=== PATIENT | male | born 1965 | race Caucasian/White ===

== ENCOUNTER 2025-03-19 00:51 | Observation (INO) | payer OTHER ==
[2025-03-19] MEDS ORDERED: Zofran 4 MG/2 ML VIAL ONE ×2 (01:38→10:26)
[2025-03-19] MEDS ORDERED: MORPHINE SULFATE 4 MG INJ ONE ×2 (01:39→03:30)
[2025-03-19 01:40] LABS: BASOPHIL % 0.5 % (0.2-1.2); Basophil (Absolute #) 0.05 x10^3/uL (0.01-0.08); Eosinophil (Absolute #) 0.15 x10^3/uL (0.04-0.54); Hematocrit 42.3 % (40.1-51.0); Hemoglobin 14.8 g/dL (13.7-17.5); IMMATURE GRAN # 0.04 x10^3u/L (0.001-0.031); IMMATURE GRAN % 0.4 % (0.001-0.429); Lymphocyte (Absolute #) 1.93 x10^3/uL (1.32-3.57); Mean Corpuscular Hemoglobin 29.1 pg (25.7-32.2); Mean Corpuscular Hgb Concent. 35.0 g/dL (32.3-36.5); Monocyte (Absolute #) 0.77 x10^3/uL (0.30-0.82); NUCLEATED RBC # 0.00 x10^3u/L (0.00-0.012); NUCLEATED RBC % 0.0 % (0.00-0.2); Platelet Count 169 x10^3/uL (163-337); Red Blood Count 5.08 x10^6/uL (4.63-6.08); White Blood Count 9.6 x10^3/uL (4.23-9.07)
[2025-03-19] MEDS: Zofran 4 MG/2 ML VIAL IV ONE (01:40)
[2025-03-19] MEDS: MORPHINE SULFATE 4 MG INJ IV ONE ×3 (01:42→06:46)
[2025-03-19 01:49] LABS: Glucose, Urine >=1000 mg/dL (Negative); Protein,Urine Dip 100 (Negative); RBC 0-2 /HPF (0-5); WBC 0-2 /HPF (0-5)
--- NOTE | 2025-03-19 01:51 | ERPHSYRPT ---
- History of Present Illness Time Seen by Provider: 03/19/25 01:45 Historian: patient Exam Limitations: no limitations Patient Subjective Stated Complaint: c/o groin pain Triage Nursing Assessment: patient brought to ED by father with c/o testicular and groin pain. patient brought into ED by wheelchair, rates pain 03/13 at this time, states that the pain started 3 days ago, has a doctors appt. in the morning but couldn't handl the pain anymore. Patient states the pain is mainly in his testicles and lower back, hernia present, hypertensive, skin w/n/d, gait steady, patient has a history of prostate issues. Physician History: 59-year-old male history of enlarged prostate, hypertension, type 2 diabetes hernia presents to our ED for evaluation of lower abdominal pain and testicular pain. Patient states the pain started 3 days ago and has been constant but has worsened over the past several hours. Pain tends to radiate to the low back. No trauma no fever. Patient was previously on lisinopril for blood pressure control. Patient states he has not taken any blood pressure medication "in a while". Patient states he currently has a appointment scheduled for a primary care physician. He admits that he has poor routine care follow-up. Patient's father is at the bedside. They voiced no other complaints or concerns at this time. Portions of this note were created with voice recognition technology. There may be grammatical, spelling, punctuation or sound alike errors Timing/Duration: today Activities at Onset: none Quality: aching Abdominal Pain Onset Location: other (Lower abdominal pain) Pain Radiation: back Severity of Pain-Max: moderate Severity of Pain-Current: mild Modifying Factors: Improves With: nothing Associated Symptoms: denies symptoms Previous symptoms: no prior history Allergies/Adverse Reactions: clarithromycin [From Biaxin] Allergy (Intermediate, Verified 03/19/25 00:59) Home Medications: No Reportable Medications [No Reported Medications] 03/19/25 [History] Hx Tetanus, Diphtheria Vaccination/Date Given: No Hx Influenza Vaccination/Date Given: No Hx Pneumococcal Vaccination/Date Given: No Travel Risk - International Travel Have you traveled outside of the country in past 3 weeks: No - Emerging Infectious Disease Are you exhibiting symptoms associated with any current EIDs: No - Review of Systems All Other Systems: Reviewed and Negative - Past Medical History Pertinent Past Medical History: Yes Cardiac History: Hypertension Respiratory History: No Pertinent History Endocrine Medical History: Diabetes Type II Male Reproductive Disorders: Prostate Problems Other Medical History: left forearm repair, hernia - Past Surgical History Past Surgical History: Yes Neuro Surgical History: No Pertinent History Gastrointestinal: Appendectomy Musculoskeletal: Orthopedic Surgery - Social History Smoking Status: Never smoker Exposure to second hand smoke: Yes Drug Use: none - Social Determinants of Health Will the patient participate in the screening: Yes Do you worry about a steady place to live?: No Do you have any problems with any of the following?: No known problems In the past 12 months,have you had to go without utilities?: No Transportation Issues: No Has anyone in your support network made you feel unsafe?: No Have you or anyone in your house had to go w/o enough food: No - Nursing Vital Signs Nursing Vital Signs: Initial Vital Signs Temperature 98.1 F 03/19/25 01:00 Pulse Rate 93 H 03/19/25 01:00 Respiratory Rate 19 03/19/25 01:00 O2 Sat by Pulse Oximetry 98 03/19/25 01:00 Pain Scale Pain Intensity 8 - Physical Exam General Appearance: no apparent distress, alert Eye Exam: PERRL/EOMI, eyes nml inspection Ears, Nose, Throat Exam: normal ENT inspection, pharynx normal, moist mucous membranes Neck Exam: normal inspection, full range of motion Respiratory Exam: normal breath sounds, lungs clear, No respiratory distress Cardiovascular Exam: regular rate/rhythm, normal heart sounds Gastrointestinal/Abdomen Exam: soft, other (Right inguinal hernia), No tenderness, No mass Male Genitalia Exam: normal genitalia, No testicular tenderness Back Exam: normal inspection, normal range of motion, No CVA tenderness, No vertebral tenderness Extremity Exam: normal inspection, normal range of motion, pelvis stable Neurologic Exam: alert, oriented x 3, cooperative, normal mood/affect, nml cerebellar function, sensation nml, No motor deficits Skin Exam: normal color, warm, dry SpO2 Interpretation: normal SpO2: 95 O2 Delivery: Room Air - Course Nursing assessment & vital signs reviewed: Yes - CT Exams Abdomen CT Interpretation: Tele-radiologist Report (Cholelithiasis, distended bladder, right inguinal hernia, sigmoid diverticulosis) - Radiology Ultrasound Exam Scrotal Ultrasound: tele radiology report (Collections Director bilateral epididymal orchitis, bilateral hydrocele with debris, left epididymal cyst with varicocele) Ordered Tests: Active Orders 24 hr Category Date Time Status IV Insertion STAT Care 03/19/25 01:21 Active NPO Diet 03/19/25 04:57 Active CTA ABDOMEN W AND/OR WO CONTRA [CT] Stat Exams 03/19/25 03:26 Completed TESTICLE [US] Stat Exams 03/19/25 01:24 Taken CBC W DIFF Stat Lab 03/19/25 01:37 Completed CMP Stat Lab 03/19/25 01:37 Completed TROPONIN Q4H Lab 03/19/25 01:37 Completed TROPONIN Q4H Lab 03/19/25 05:30 Ordered TROPONIN Q4H Lab 03/19/25 09:30 Ordered UA W/RFX UR CULTURE Stat Lab 03/19/25 01:27 Completed Medication Summary Generic Name Dose Route Start Last Admin Trade Name Freq PRN Reason Stop Dose Admin Sodium Chloride 1,000 mls @ 100 mls/hr 03/19/25 01:30 03/19/25 01:41 Sodium Chloride 0.9% 1000 Ml IV 04/18/25 01:29 100 mls/hr .Q10H JAIRO Administration Ceftriaxone Sodium 1 gm in 100 mls @ 200 mls/hr 03/19/25 05:03 Rocephin 1 Gm / 100 Ml Nacl IV 03/19/25 05:32 STAT ONE Metronidazole 500 mg in 100 mls @ 200 mls/hr 03/19/25 05:04 Flagyl 500 Mg Ivpb IV 03/19/25 05:33 STAT STA Discontinued Medications Generic Name Dose Route Start Last Admin Trade Name Freq PRN Reason Stop Dose Admin Morphine Sulfate 4 mg 03/19/25 01:21 03/19/25 01:42 Morphine Sulfate 4 Mg/Ml Injection IV 03/19/25 01:22 4 mg STAT ONE Administration Morphine Sulfate Confirm 03/19/25 01:39 Morphine Sulfate 4 Mg/Ml Injection Administered 03/19/25 01:40 Dose 4 mg .ROUTE .STK-MED ONE Morphine Sulfate 4 mg 03/19/25 03:27 03/19/25 03:34 Morphine Sulfate 4 Mg/Ml Injection IV 03/19/25 03:28 4 mg STAT ONE Administration Morphine Sulfate Confirm 03/19/25 03:30 Morphine Sulfate 4 Mg/Ml Injection Administered 03/19/25 03:31 Dose 4 mg .ROUTE .STK-MED ONE Ondansetron HCl 4 mg 03/19/25 01:21 03/19/25 01:40 Ondansetron Hcl 4 Mg/2 Ml Vial IV 03/19/25 01:22 4 mg STAT ONE Administration Ondansetron HCl Confirm 03/19/25 01:38 Ondansetron Hcl 4 Mg/2 Ml Vial Administered 03/19/25 01:39 Dose 4 mg .ROUTE .K-MED ONE Lab/Rad Data: Laboratory Result Diagrams 03/19/25 01:37 03/19/25 01:37 Laboratory Results 03/19/25 03/19/25 03/19/25 Range/Units 01:38 01:37 01:37 WBC (4.23-9.07) x10^3/uL RBC (4.63-6.08) x10^6/uL Hgb (13.7-17.5) g/dL Hct (40.1-51.0) % MCV (79.0-92.2) fL MCH (25.7-32.2) pg MCHC (32.3-36.5) g/dL RDW (11.6-14.4) % Plt Count (163-337) x10^3/uL MPV (9.4-12.4) fL Gran % (34.0-67.9) % Immature Gran % (Auto) (0.001-0.429) % Nucleat RBC Rel Count (0.00-0.2) % Eos # (Auto) (0.04-0.54) x10^3/uL Immature Gran # (Auto) (0.001-0.031) x10^3u/L Absolute Lymphs (auto) (1.32-3.57) x10^3/uL Absolute Monos (auto) (0.30-0.82) x10^3/uL Absolute Nucleated RBC (0.00-0.012) x10^3u/L Lymphocytes % (21.8-53.1) % Monocytes % (5.3-12.2) % Eosinophils % (0.8-7.0) % Basophils % (0.2-1.2) % Absolute Granulocytes (1.78-5.38) x10^3/uL Basophils # (0.01-0.08) x10^3/uL Sodium 130 L (135-145) mmol/L Potassium 4.1 (3.5-5.1) mmol/L Chloride 101 (98-107) mmol/L Carbon Dioxide 20 L (22-30) mmol/L Anion Gap 13.4 (5-15) MEQ/L BUN 28 H (9-20) mg/dL Creatinine 0.92 (0.66-1.25) mg/dL Estimated GFR 95.8 ML/MIN Glucose 362 H (74-106) mg/dL Calcium 8.9 (8.4-10.2) mg/dL Total Bilirubin 0.50 (0.2-1.3) mg/dL AST 24 (17-59) U/L ALT 27 (0-50) U/L Alkaline Phosphatase 85 (38-126) U/L Troponin I 0.021 (0.000-0.033) ng/mL Serum Total Protein 6.9 (6.3-8.2) g/dL Albumin 4.0 (3.5-5.0) g/dL Urine Color (Yellow) Urine Appearance (Clear) Urine pH (4.6-8.0) Ur Specific [place] (1.005-1.030) Urine Protein (Negative) Urine Glucose (UA) (Negative) mg/dL Urine Ketones (Negative) Urine Blood (Negative) Urine Nitrite (Negative) Urine Bilirubin (Negative) Urine Urobilinogen (0.2) mg/dL Ur Leukocyte Esterase (Negative) U Hyaline Cast (Auto) (0-2) /LPF Urine Microscopic RBC (0-5) /HPF Urine Microscopic WBC (0-5) /HPF Ur Epithelial Cells (None Seen) /HPF Urine Bacteria (None Seen) /HPF Urine Culture Reflexed (NO) Chlamydia DNA Probe NOT DETECTED (NEGATIVE) N.gonorrhoeae DNA Probe NOT DETECTED (NEGATIVE) 03/19/25 03/19/25 Range/Units 01:37 01:27 WBC 9.6 H (4.23-9.07) x10^3/uL RBC 5.08 (4.63-6.08) x10^6/uL Hgb 14.8 (13.7-17.5) g/dL Hct 42.3 (40.1-51.0) % MCV 83.3 (79.0-92.2) fL MCH 29.1 (25.7-32.2) pg MCHC 35.0 (32.3-36.5) g/dL RDW 12.4 (11.6-14.4) % Plt Count 169 (163-337) x10^3/uL MPV 10.0 (9.4-12.4) fL Gran % 69.3 H (34.0-67.9) % Immature Gran % (Auto) 0.4 (0.001-0.429) % Nucleat RBC Rel Count 0.0 (0.00-0.2) % Eos # (Auto) 0.15 (0.04-0.54) x10^3/uL Immature Gran # (Auto) 0.04 H (0.001-0.031) x10^3u/L Absolute Lymphs (auto) 1.93 (1.32-3.57) x10^3/uL Absolute Monos (auto) 0.77 (0.30-0.82) x10^3/uL Absolute Nucleated RBC 0.00 (0.00-0.012) x10^3u/L Lymphocytes % 20.2 L (21.8-53.1) % Monocytes % 8.0 (5.3-12.2) % Eosinophils % 1.6 (0.8-7.0) % Basophils % 0.5 (0.2-1.2) % Absolute Granulocytes 6.63 H (1.78-5.38) x10^3/uL Basophils # 0.05 (0.01-0.08) x10^3/uL Sodium (135-145) mmol/L Potassium (3.5-5.1) mmol/L Chloride (98-107) mmol/L Carbon Dioxide (22-30) mmol/L Anion Gap (5-15) MEQ/L BUN (9-20) mg/dL Creatinine (0.66-1.25) mg/dL Estimated GFR ML/MIN Glucose (74-106) mg/dL Calcium (8.4-10.2) mg/dL Total Bilirubin (0.2-1.3) mg/dL AST (17-59) U/L ALT (0-50) U/L Alkaline Phosphatase (38-126) U/L Troponin I (0.000-0.033) ng/mL Serum Total Protein (6.3-8.2) g/dL Albumin (3.5-5.0) g/dL Urine Color Yellow (Yellow) Urine Appearance Clear (Clear) Urine pH 6.0 (4.6-8.0) Ur Specific [place] 1.025 (1.005-1.030) Urine Protein 100 A (Negative) Urine Glucose (UA) >=1000 A (Negative) mg/dL Urine Ketones Negative (Negative) Urine Blood Negative (Negative) Urine Nitrite Negative (Negative) Urine Bilirubin Negative (Negative) Urine Urobilinogen 1.0 A (0.2) mg/dL Ur Leukocyte Esterase Negative (Negative) U Hyaline Cast (Auto) NONE SEEN (0-2) /LPF Urine Microscopic RBC 0-2 (0-5) /HPF Urine Microscopic WBC 0-2 (0-5) /HPF Ur Epithelial Cells None Seen (None Seen) /HPF Urine Bacteria None Seen (None Seen) /HPF Urine Culture Reflexed NO (NO) Chlamydia DNA Probe (NEGATIVE) N.gonorrhoeae DNA Probe (NEGATIVE) - Progress Progress: improved Progress Note: Case discussed with Dr. Adam Sutton at 4:53 AM. Patient will be NPO. Patient will be admitted to hospitalist for further evaluation and treatment. 03/19/25 04:57 59-year-old male history of enlarged prostate, hypertension, type 2 diabetes hernia presents to our ED for evaluation of lower abdominal pain and testicular pain. Patient states the pain started 3 days ago and has been constant but has worsened over the past several hours. Exam reveals a right inguinal hernia that appears to be incarcerated. Ultrasound of bilateral testicles reveals epididymal orchitis bilaterally. Bilateral hydrocele with debris left epididymal cysts with varicocele. No torsion. CT scan confirms a right inguinal hernia containing bowel. Urinary bladder slightly distended. Sigmoid diverticulosis. Patient has leukocytosis of 9.6. Hyponatremia of 130. IV fluids administered. In light of the bilateral epididymoorchitis patient received a dose of Rocephin. Flagyl administered as well. Patient is NPO. Plan of care discussed with patient. He agrees to admission to [facility] for further evaluation and treatment. Rocephin and Flagyl administered to cover both epididymal orchitis and intra- abdominal pathology Portions of this note were created with voice recognition technology. There may be grammatical, spelling, punctuation or sound alike errors History obtained from patient. Differential diagnosis includes incarcerated right inguinal hernia, ureterolithiasis, appendicitis, trauma Complexity of problems addressed is moderate acute complicated. No critical care time. Complexity of data reviewed and analyzed is extensive. Test ordered test reviewed results analyzed and correlated clinically with history and physical exam. Risk of complication and or risk of morbidity/mortality of patient management is high. Patient requires hospitalization for further evaluation and treatment. Vital stable. Time spent admit patient is approximately 20 minutes. Plan of care established for shared decision making. No social determinants of health present to impede follow-up. Portions of this note were created with voice recognition technology. There may be grammatical, spelling, punctuation or sound alike errors 03/19/25 05:[address] Jauregui accepts admission at 5:26 AM 03/19/25 05:26 Discussed with : Maranda Will see patient in: hospital (observation) Counseled pt/family regarding: lab results, diagnosis, rad results - Departure Departure Disposition: Observation Clinical Impression: Right inguinal hernia, Back pain, Lower abdominal pain, Testicular pain, Bilateral epididymal orchitis, Bilateral hydrocele with debris, Left epididymal cyst, Left varicocele, Leukocytosis, Hyponatremia, Hyperglycemia, Proteinuria, Glucosuria, Dehydration, Cholelithiasis, Sigmoid diverticulosis, Incarcerated right inguinal hernia Condition: Stable Critical Care Time: No Referrals: DOCTOR,NO FAMILY [Primary Care Provider, UNKNOWN] - Follow up/PCP as directed RONALD MCCARTHY MD [ACTIVE STAFF, FAMILY PRACTICE] - Follow up/PCP as directed
[2025-03-19 01:58] LABS: Calcium 8.9 mg/dL (8.4-10.2); Carbon Dioxide 20.0 mmol/L (22-30); Creatinine 1 0.92 mg/dL (0.66-1.25); EST GLOMERULAR FILTRATION RATE 95.8 ML/MIN; Glucose 362.0 mg/dL (74-106); Potassium 4.1 mmol/L (3.5-5.1); SGOT/AST 24.0 U/L (17-59); SGPT/ALT 27.0 U/L (0-50); Total Protein 6.9 g/dL (6.3-8.2)
[2025-03-19 03:11] LABS: CHLAMYDIA DNA NOT DETECTED (NEGATIVE)
--- NOTE | 2025-03-19 04:29 | XRAY ---
CLINICAL HISTORY: pain COMPARISON: None TECHNIQUE: Contiguous axial images were obtained from the level of the diaphragm to the pubic symphysis without and with intravenous contrast. Coronal and sagittal reconstructions were likewise performed and indicated to increase the sensitivity for detecting clinically relevant pathology. If IV contrast material had not been administered, the likelihood of detecting abnormalities relevant to the patient's condition would have been substantially decreased. The CT scan was performed according to ALARA (as low as reasonably achievable). FINDINGS: Abdominal aorta is normal in course, calibre and opacification. Origin of coeliac artery, superior mesenteric artery , bilateral main renal and lumbar arteries are normal with no hemodynamically significant ostial stenosis noted. The visualized lung bases are clear. The liver is normal in size and attenuation. No focal liver lesions are seen. There is no intra- or extrahepatic biliary ductal dilatation. Hepatic vasculature is patent. The gallbladder shows multiple calculi without cholecystitis. The spleen, pancreas, and adrenal glands are unremarkable. The kidneys are normal in size and attenuation. There is no hydronephrosis or perinephric fat stranding. Few tiny concretions are noted in the right kidney. The ureters are normal in caliber and no ureteral calculi are seen. The bladder is distended and shows a thickened, irregular wall?wall thickness 7-8 mm?with the possibility of cystitis changes. Urine analysis correlation is suggested. Pelvic viscera are unremarkable. No focal or diffuse bowel wall thickening or evidence of bowel obstruction is identified. No imaging evidence of appendicitis. Abdominal and pelvic vasculature is patent. No adenopathy or fluid collections are seen. Right inguinal hernia with bowel loops as content. No complication seen. No aggressive-appearing osseous lesions are identified. Multiple small, uncomplicated sigmoid colonic diverticulosis. IMPRESSION: Uncomplicated cholelithiasis. Few tiny concretions are noted in the right kidney. The bladder is distended and shows thickened, irregular wall?wall thickness 7-8 mm?with the possibility of cystitis changes. Urine analysis correlation is suggested. Right inguinal hernia with bowel loops as content. No complication seen. Multiple small, uncomplicated sigmoid colonic diverticulosis No evidence of aortic dissection or aneurysm. No evidence of pseudoaneurysm or active contrast extravasation. Electronically Signed by: Nasim Gomez MD. (03/19/2025 04:27:59 EDT)
[2025-03-19] MEDS ORDERED: ROCEPHIN 1 GM / 100 ML NaCl 1 GM/100 ML IVPB IV ONE (05:17)
[2025-03-19] MEDS: ROCEPHIN 1 GM / 100 ML NaCl 1 GM/100 ML IVPB IV ONE (05:19)
[2025-03-19] MEDS: FLAGYL 500 MG IVPB 500 MG/100 ML BAG IV STA (06:15)
[2025-03-19] MEDS: APRESOLINE 20 MG/ML INJ IV ONE (06:52)
--- NOTE | 2025-03-19 07:28 | PCM.HP ---
<MARTA PRITCHETT - Last Filed: 03/19/25 08:54> History of Present Illness - Chief Complaint Chief Complaint: Incarcerated inguinal hernia, abdominal pain Date: 03/19/25 History of Present Illness: is a 59 year old male with a history of benign prostatic hypertrophy, hypertension, type 2 diabetes mellitus, and right inguinal hernia presented with three days of worsening lower abdominal and testicular pain radiating to the low back. He denied fever, chills, nausea, vomiting, or trauma. The pain had been constant but intensified with a numerical rating of 10/10 over the past several hours. He reported nonadherence to antihypertensive therapy, stating he had not taken lisinopril in a while. He also reports that he longer takes his diabetes medications. He admitted to poor medical follow-up but noted a scheduled upcoming primary care visit. His father was present and voiced no additional concerns. On arrival, the patient was markedly hypertensive at 207/130 mm Hg, afebrile, and uncomfortable. Physical examination revealed lower abdominal tenderness, a palpable right inguinal hernia mildly tender but reducible, and bilateral scrotal tenderness with erythema, no torsion signs. Laboratory findings showed mild leukocytosis at 9.6, hyponatremia at 130, hyperglycemia at 362 (corrected sodium 133), low bicarbonate at 20, and BUN elevation to 28 with normal creatininesuggesting dehydration and metabolic stress without acute kidney injury. Urinalysis was unremarkable, and chlamydia/gonorrhea NAAT testing was negative. CTA of the abdomen and pelvis revealed uncomplicated cholelithiasis, tiny right renal calculi, and a distended urinary bladder with an irregular wall thickened to 78 mm, raising concern for cystitis or outlet obstruction. A right inguinal hernia containing bowel loops was seen without obstruction or strangulation. Multiple sigmoid diverticula were noted without inflammation. No aortic dissection, aneurysm, pseudoaneurysm, or active extravasation was seen. Ultrasound of the testicles showed homogeneous echogenicity bilaterally, with mild hyperemic Doppler flow indicating orchitis, and prominent, hyperemic epididymides suggesting epididymitis. A 4 mm left epididymal cyst and small bilateral reactive hydroceles were present. No extratesticular mass or hernia was visualized. The patient received IV fluids, ceftriaxone, and metronidazole in the emergency department for broad genitourinary and intra-abdominal coverage. He was made NPO. Case was discussed with Dr. Adam Sutton , and the patient was admitted for continued IV antibiotics, BP control, glucose optimization, and surgical observation. Patient given Hydralazine 10mg with BP coming down to 156/81. Blood sugar treated with SSI. - Review of Systems Constitutional: No Symptoms Eyes: No Symptoms Ears, Nose, & Throat: No Symptoms Respiratory: No Symptoms Cardiac: No Symptoms Abdominal/Gastrointestinal: Abdominal Pain Genitourinary Symptoms: Hesitancy, Urinary Retention, Testicle Pain (bilateral) Musculoskeletal: Back Pain Skin: No Symptoms Neurological: No Symptoms Psychological: No Symptoms Endocrine: No Symptoms Hematologic/Lymphatic: No Symptoms Immunological/Allergic: No Symptoms Medications & Allergies Home Medications: Home Medication List No Reportable Medications [No Reported Medications] 03/19/25 [History Confirmed 03/19/25] Allergies/Adverse Reactions: Allergies Allergy/AdvReac Type Severity Reaction Status Date / Time clarithromycin [From Biaxin] Allergy Intermediate Verified 03/19/25 00:59 - Past Medical History Past Medical History: Yes Neurological History: No Pertinent History ENT History: No Pertinent History Cardiac History: Hypertension Respiratory History: No Pertinent History Endocrine Medical History: Diabetes Type II Musculoskelatal History: No Pertinent History GI Medical History: No Pertinent History History: No Pertinent History Pyscho-Social History: No Pertinent History Male Reproductive Disorders: Prostate Problems Comment: left forearm repair, hernia - Past Surgical History Past Surgical History: Yes Neuro Surgical History: No Pertinent History Cardiac History: No Pertinent History Respiratory Surgery: No Pertinent History GI Surgical History: Appendectomy Genitourinary Surgical Hx: No Pertinent History Musculskeletal Surgical Hx: Orthopedic Surgery Male Surgical History: No Pertinent History Other Surgical History: Bilateral injection in retina to stop bleeding. Significant Family History: other (Adopted) - Social History Smoking Status: Never smoker How long have you smoked: YRS Exposure to second hand smoke: No Alcohol: None Drug Use: none - Social Determinants of Health Will the patient participate in the screening: Yes Do you worry about a steady place to live?: No Do you have any problems with any of the following?: No known problems In the past 12 months,have you had to go without utilities?: No Have you or anyone in your house had to go without enough: No Transportation Issues: No Has anyone in your support network made you feel unsafe?: No Does the patient want assistance with any of the above?: No - Physical Exam Vital Signs: Vital Signs - 24 hr Temp Pulse Resp BP BP Pulse Ox 03/19/25 06:07 98.9 F 77 18 215/117 97 03/19/25 05:30 79 18 197/132 97 03/19/25 05:27 95 03/19/25 05:00 78 16 207/130 98 03/19/25 04:30 181/110 97 03/19/25 04:00 79 18 156/107 97 03/19/25 03:54 81 17 207/119 97 03/19/25 03:30 196/114 98 03/19/25 03:04 87 16 205/125 97 03/19/25 02:30 193/122 98 03/19/25 02:00 88 18 191/109 98 03/19/25 01:30 95 H 16 195/144 95 03/19/25 01:07 219/132 98 03/19/25 01:00 98.1 F 93 H 19 98 General Appearance: mild distress Neurologic Exam: alert, oriented x 3, cooperative Eye Exam: PERRL/EOMI Ears, Nose, Throat Exam: normal ENT inspection Neck Exam: normal inspection Respiratory Exam: normal breath sounds, lungs clear Cardiovascular Exam: regular rate/rhythm, normal heart sounds Gastrointestinal/Abdomen Exam: soft, normal bowel sounds Male Genitalia Exam: testicular tenderness (erythema) Rectal Exam: deferred Back Exam: normal inspection Extremity Exam: normal inspection Skin Exam: normal color Results - Labs Lab/Micro Results: Lab Results-Last 24 Hours 03/19/25 03/19/25 03/19/25 Range/Units 01:27 01:37 01:37 WBC 9.6 H (4.23-9.07) x10^3/uL RBC 5.08 (4.63-6.08) x10^6/uL Hgb 14.8 (13.7-17.5) g/dL Hct 42.3 (40.1-51.0) % MCV 83.3 (79.0-92.2) fL MCH 29.1 (25.7-32.2) pg MCHC 35.0 (32.3-36.5) g/dL RDW 12.4 (11.6-14.4) % Plt Count 169 (163-337) x10^3/uL MPV 10.0 (9.4-12.4) fL Gran % 69.3 H (34.0-67.9) % Immature Gran % (Auto) 0.4 (0.001-0.429) % Nucleat RBC Rel Count 0.0 (0.00-0.2) % Eos # (Auto) 0.15 (0.04-0.54) x10^3/uL Immature Gran # (Auto) 0.04 H (0.001-0.031) x10^3u/L Absolute Lymphs (auto) 1.93 (1.32-3.57) x10^3/uL Absolute Monos (auto) 0.77 (0.30-0.82) x10^3/uL Absolute Nucleated RBC 0.00 (0.00-0.012) x10^3u/L Lymphocytes % 20.2 L (21.8-53.1) % Monocytes % 8.0 (5.3-12.2) % Eosinophils % 1.6 (0.8-7.0) % Basophils % 0.5 (0.2-1.2) % Absolute Granulocytes 6.63 H (1.78-5.38) x10^3/uL Basophils # 0.05 (0.01-0.08) x10^3/uL Sodium 130 L (135-145) mmol/L Potassium 4.1 (3.5-5.1) mmol/L Chloride 101 (98-107) mmol/L Carbon Dioxide 20 L (22-30) mmol/L Anion Gap 13.4 (5-15) MEQ/L BUN 28 H (9-20) mg/dL Creatinine 0.92 (0.66-1.25) mg/dL Estimated GFR 95.8 ML/MIN Glucose 362 H (74-106) mg/dL POC Glucometer (74 to 106) mg/dL Calcium 8.9 (8.4-10.2) mg/dL Total Bilirubin 0.50 (0.2-1.3) mg/dL AST 24 (17-59) U/L ALT 27 (0-50) U/L Alkaline Phosphatase 85 (38-126) U/L Troponin I (0.000-0.033) ng/mL Serum Total Protein 6.9 (6.3-8.2) g/dL Albumin 4.0 (3.5-5.0) g/dL Urine Color Yellow (Yellow) Urine Appearance Clear (Clear) Urine pH 6.0 (4.6-8.0) Ur Specific [place] 1.025 (1.005-1.030) Urine Protein 100 A (Negative) Urine Glucose (UA) >=1000 A (Negative) mg/dL Urine Ketones Negative (Negative) Urine Blood Negative (Negative) Urine Nitrite Negative (Negative) Urine Bilirubin Negative (Negative) Urine Urobilinogen 1.0 A (0.2) mg/dL Ur Leukocyte Esterase Negative (Negative) U Hyaline Cast (Auto) NONE SEEN (0-2) /LPF Urine Microscopic RBC 0-2 (0-5) /HPF Urine Microscopic WBC 0-2 (0-5) /HPF Ur Epithelial Cells None Seen (None Seen) /HPF Urine Bacteria None Seen (None Seen) /HPF Urine Culture Reflexed NO (NO) Chlamydia DNA Probe (NEGATIVE) N.gonorrhoeae DNA Probe (NEGATIVE) 03/19/25 03/19/25 03/19/25 Range/Units 01:37 01:38 05:14 WBC (4.23-9.07) x10^3/uL RBC (4.63-6.08) x10^6/uL Hgb (13.7-17.5) g/dL Hct (40.1-51.0) % MCV (79.0-92.2) fL MCH (25.7-32.2) pg MCHC (32.3-36.5) g/dL RDW (11.6-14.4) % Plt Count (163-337) x10^3/uL MPV (9.4-12.4) fL Gran % (34.0-67.9) % Immature Gran % (Auto) (0.001-0.429) % Nucleat RBC Rel Count (0.00-0.2) % Eos # (Auto) (0.04-0.54) x10^3/uL Immature Gran # (Auto) (0.001-0.031) x10^3u/L Absolute Lymphs (auto) (1.32-3.57) x10^3/uL Absolute Monos (auto) (0.30-0.82) x10^3/uL Absolute Nucleated RBC (0.00-0.012) x10^3u/L Lymphocytes % (21.8-53.1) % Monocytes % (5.3-12.2) % Eosinophils % (0.8-7.0) % Basophils % (0.2-1.2) % Absolute Granulocytes (1.78-5.38) x10^3/uL Basophils # (0.01-0.08) x10^3/uL Sodium (135-145) mmol/L Potassium (3.5-5.1) mmol/L Chloride (98-107) mmol/L Carbon Dioxide (22-30) mmol/L Anion Gap (5-15) MEQ/L BUN (9-20) mg/dL Creatinine (0.66-1.25) mg/dL Estimated GFR ML/MIN Glucose (74-106) mg/dL POC Glucometer (74 to 106) mg/dL Calcium (8.4-10.2) mg/dL Total Bilirubin (0.2-1.3) mg/dL AST (17-59) U/L ALT (0-50) U/L Alkaline Phosphatase (38-126) U/L Troponin I 0.021 0.023 (0.000-0.033) ng/mL Serum Total Protein (6.3-8.2) g/dL Albumin (3.5-5.0) g/dL Urine Color (Yellow) Urine Appearance (Clear) Urine pH (4.6-8.0) Ur Specific [place] (1.005-1.030) Urine Protein (Negative) Urine Glucose (UA) (Negative) mg/dL Urine Ketones (Negative) Urine Blood (Negative) Urine Nitrite (Negative) Urine Bilirubin (Negative) Urine Urobilinogen (0.2) mg/dL Ur Leukocyte Esterase (Negative) U Hyaline Cast (Auto) (0-2) /LPF Urine Microscopic RBC (0-5) /HPF Urine Microscopic WBC (0-5) /HPF Ur Epithelial Cells (None Seen) /HPF Urine Bacteria (None Seen) /HPF Urine Culture Reflexed (NO) Chlamydia DNA Probe NOT DETECTED (NEGATIVE) N.gonorrhoeae DNA Probe NOT DETECTED (NEGATIVE) 03/19/25 Range/Units 07:14 WBC (4.23-9.07) x10^3/uL RBC (4.63-6.08) x10^6/uL Hgb (13.7-17.5) g/dL Hct (40.1-51.0) % MCV (79.0-92.2) fL MCH (25.7-32.2) pg MCHC (32.3-36.5) g/dL RDW (11.6-14.4) % Plt Count (163-337) x10^3/uL MPV (9.4-12.4) fL Gran % (34.0-67.9) % Immature Gran % (Auto) (0.001-0.429) % Nucleat RBC Rel Count (0.00-0.2) % Eos # (Auto) (0.04-0.54) x10^3/uL Immature Gran # (Auto) (0.001-0.031) x10^3u/L Absolute Lymphs (auto) (1.32-3.57) x10^3/uL Absolute Monos (auto) (0.30-0.82) x10^3/uL Absolute Nucleated RBC (0.00-0.012) x10^3u/L Lymphocytes % (21.8-53.1) % Monocytes % (5.3-12.2) % Eosinophils % (0.8-7.0) % Basophils % (0.2-1.2) % Absolute Granulocytes (1.78-5.38) x10^3/uL Basophils # (0.01-0.08) x10^3/uL Sodium (135-145) mmol/L Potassium (3.5-5.1) mmol/L Chloride (98-107) mmol/L Carbon Dioxide (22-30) mmol/L Anion Gap (5-15) MEQ/L BUN (9-20) mg/dL Creatinine (0.66-1.25) mg/dL Estimated GFR ML/MIN Glucose (74-106) mg/dL POC Glucometer 307 H (74 to 106) mg/dL Calcium (8.4-10.2) mg/dL Total Bilirubin (0.2-1.3) mg/dL AST (17-59) U/L ALT (0-50) U/L Alkaline Phosphatase (38-126) U/L Troponin I (0.000-0.033) ng/mL Serum Total Protein (6.3-8.2) g/dL Albumin (3.5-5.0) g/dL Urine Color (Yellow) Urine Appearance (Clear) Urine pH (4.6-8.0) Ur Specific [place] (1.005-1.030) Urine Protein (Negative) Urine Glucose (UA) (Negative) mg/dL Urine Ketones (Negative) Urine Blood (Negative) Urine Nitrite (Negative) Urine Bilirubin (Negative) Urine Urobilinogen (0.2) mg/dL Ur Leukocyte Esterase (Negative) U Hyaline Cast (Auto) (0-2) /LPF Urine Microscopic RBC (0-5) /HPF Urine Microscopic WBC (0-5) /HPF Ur Epithelial Cells (None Seen) /HPF Urine Bacteria (None Seen) /HPF Urine Culture Reflexed (NO) Chlamydia DNA Probe (NEGATIVE) N.gonorrhoeae DNA Probe (NEGATIVE) - Radiology Impressions Radiology Exams & Impressions: Radiology Procedures Category Date Time Status CTA ABDOMEN W AND/OR WO CONTRA [CT] Stat Exams 03/19/25 03:26 Completed TESTICLE [US] Stat Exams 03/19/25 01:24 Taken Assessment/Plan (1) Right inguinal hernia Current Visit: Yes Status: Acute Assessment & Plan: -CT confirmed hernia -Incarcerated, Non-Obstructed with bowel loops but no strangulation. -Maintain NPO -Pain control -Surgical consult -Monitor for obstructive symptoms. Code(s): K40.90 - UNIL INGUINAL HERNIA, W/O OBST OR GANGR, NOT SPCF RECUR (2) Bilateral epididymitis Current Visit: Yes Status: Acute Assessment & Plan: -Ultrasound findings of bilateral hyperemia and enlarged epididymides, plus small reactive hydroceles, confirm infectious epididymo-orchitis. The absence of torsion, leukocytosis (9.6 ), and negative STI testing -?non-STI, enteric source related to bladder outlet obstruction and reflux of infected urine. -PVR with bladder scan -CTA correlation shows a distended bladder with irregular wall thickening (78 mm) consistent with this mechanism. -WBC reivewed at 9.6 and elevated BUN of 28 , suggesting a systemic inflammatory response with mild dehydration. Urinalysis was unremarkable, and NAAT for chlamydia and gonorrhea was negative, supporting an enteric etiology rather than a sexually transmitted infection. -Continue IV ceftriaxone and metronidazole to cover enteric and anaerobic organ isms. -add one time dose levaquin -Consider transfer for urology and ID Maintain NPO status, -Continue IVF -Monitor for fever or progression of swelling. Provide analgesics, scrotal support, and bedrest. -Obtain urine and blood cultures -CBC and CMP reviewed - trend Code(s): N45.1 - EPIDIDYMITIS (3) Bilateral orchitis Current Visit: Yes Status: Acute Assessment & Plan: -see above Code(s): N45.2 - ORCHITIS (4) Hypertensive urgency Current Visit: Yes Status: Acute Assessment & Plan: -The patient presented with a blood pressure of 207/130 mm Hg, likely exacerbated by pain, stress, and nonadherence to antihypertensives (off lisinopril for a while). -No acute end-organ damage was notedrenal function preserved (creatinine normal), no neurologic deficits, and no cardiac ischemia reported. -IV hydralazine 10mg given -target 2025% reduction over several hours -repeat BP 156/81 -Once PO resumed and tolerated, restart oral antihypertensive therapy - Continuous BP and cardiac monitoring, pain control, and medication adherence counseling are essential prior to discharge. Code(s): I16.0 - HYPERTENSIVE URGENCY (5) Hyponatremia Current Visit: Yes Status: Acute Assessment & Plan: -sodium of 130 corrects to approximately 133 accounting for hyperglycemia, indicating pseudohyponatremia rather than true sodium loss. Accompanied by bicarbonate 20 mmol/L, consistent with mild metabolic acidosis in the setting of hyperglycemia and dehydration. -Continue IVF - Monitor BMP q6h for sodium correction and glucose improvement Code(s): E87.1 - HYPO-OSMOLALITY AND HYPONATREMIA (6) Hyperglycemia Current Visit: Yes Status: Acute Assessment & Plan: -Blood glucose elevated at 362 -Manage with basal-bolus insulin therapy or correctional sliding-scale insulin while NPO. H -Hold oral agents. Code(s): R73.9 - HYPERGLYCEMIA, UNSPECIFIED (7) Bladder wall thickening Current Visit: Yes Status: Acute Assessment & Plan: -CT abdomen/pelvis showed a distended urinary bladder with thickened, irregular wall (78 mm), consistent with chronic outlet obstruction from benign prostatic hypertrophy and possible cystitis. Urinalysis was negative for infection. -Monitor post-void residual with bladder scan, assess for urinary retention, and initiate tamsulosin once oral intake resumes. -Maintain hydration to aid bladder decompression. - Consider urology consultation for outpatient follow-up and prostate management. Code(s): N32.89 - OTHER SPECIFIED DISORDERS OF BLADDER (8) Prerenal azotemia Current Visit: Yes Status: Acute Assessment & Plan: -Elevation of BUN with preserved creatinine indicates volume depletion from dehydration, osmotic diuresis, and reduced intake. -Continue gentle IV hydration, monitor urine output, and trend BUN/creatinine ratio for improvement. -Avoid nephrotoxic medications. Code(s): R79.89 - OTHER SPECIFIED ABNORMAL FINDINGS OF BLOOD CHEMISTRY (9) Cholelithiasis Current Visit: Yes Status: Acute Assessment & Plan: -CT abdomen/pelvis demonstrated uncomplicated cholelithiasis with no gallbladder wall thickening or pericholecystic fluid. -No inpatient intervention required. [employer] Driver on dietary modification and schedule outpatient surgical evaluation if symptomatic episodes develop. (10) BPH (benign prostatic hyperplasia) Current Visit: Yes Status: Acute Assessment & Plan: -CTA revealed distended bladder with irregular wall thickening (78 mm). -Urinalysis was unremarkable, -? chronic bladder outlet obstruction rather than acute infection. - Continue IV fluids and monitor urine output and post-void residuals. -Start tamsulosin 0.4 mg daily when oral intake resumes. -Arrange outpatient urology follow-up for prostate assessment and long-term management of voiding dysfunction. Code(s): N40.0 - BENIGN PROSTATIC HYPERPLASIA WITHOUT LOWER URINRY TRACT SYMP (11) DMII (diabetes mellitus, type 2) Current Visit: Yes Status: Acute Assessment & Plan: -basal-bolus insulin regimen with correctional coverage to maintain glucose 171933 mg/dL -Monitor glucose q4h, while NPO -Treat hyperglycemia before any elective surgical intervention. -Once tolerating a diet - resume ADA diet, SSI -A1c -Patient non-compliant with home meds- reports he has Metformin at home but does not take it (12) HTN (hypertension) Current Visit: Yes Status: Acute Assessment & Plan: -see hypertensive urgency VTE: SCD for now PPI: protonix Dispo: 2-3 days Code status: Full Code Plan of care time spent > 40 mins Code(s): I10 - ESSENTIAL (PRIMARY) HYPERTENSION <LANDEN WHITTEN - Last Filed: 03/20/25 09:34> History of Present Illness - Chief Complaint History of Present Illness: is a 59 year old male. - Physical Exam Vital Signs: Vital Signs - 24 hr Temp Pulse Resp BP Pulse Ox 03/20/25 07:33 97.8 F 72 16 168/78 96 03/20/25 04:00 97.7 F 71 16 163/88 98 03/20/25 00:00 71 03/19/25 20:00 97.6 F 70 16 137/77 99 03/19/25 17:00 98.0 F 76 16 159/82 97 03/19/25 16:00 97.9 F 76 16 147/76 96 03/19/25 14:00 74 137/80 98 03/19/25 12:35 98 F 64 18 144/81 98 03/19/25 09:58 98.9 F 77 18 156/81 97 Results - Labs Lab/Micro Results: Lab Results-Last 24 Hours 03/19/25 03/19/25 03/19/25 Range/Units 01:37 10:01 12:04 WBC (4.23-9.07) x10^3/uL RBC (4.63-6.08) x10^6/uL Hgb (13.7-17.5) g/dL Hct (40.1-51.0) % MCV (79.0-92.2) fL MCH (25.7-32.2) pg MCHC (32.3-36.5) g/dL RDW (11.6-14.4) % Plt Count (163-337) x10^3/uL MPV (9.4-12.4) fL Gran % (34.0-67.9) % Immature Gran % (Auto) (0.001-0.429) % Nucleat RBC Rel Count (0.00-0.2) % Eos # (Auto) (0.04-0.54) x10^3/uL Immature Gran # (Auto) (0.001-0.031) x10^3u/L Absolute Lymphs (auto) (1.32-3.57) x10^3/uL Absolute Monos (auto) (0.30-0.82) x10^3/uL Absolute Nucleated RBC (0.00-0.012) x10^3u/L Lymphocytes % (21.8-53.1) % Monocytes % (5.3-12.2) % Eosinophils % (0.8-7.0) % Basophils % (0.2-1.2) % Absolute Granulocytes (1.78-5.38) x10^3/uL Basophils # (0.01-0.08) x10^3/uL Sodium (135-145) mmol/L Potassium (3.5-5.1) mmol/L Chloride (98-107) mmol/L Carbon Dioxide (22-30) mmol/L Anion Gap (5-15) MEQ/L BUN (9-20) mg/dL Creatinine (0.66-1.25) mg/dL Estimated GFR ML/MIN Glucose (74-106) mg/dL POC Glucometer 270 H 185 H (74 to 106) mg/dL Hemoglobin A1c 11.92 H (4.5-6.0) % Calcium (8.4-10.2) mg/dL Total Bilirubin (0.2-1.3) mg/dL AST (17-59) U/L ALT (0-50) U/L Alkaline Phosphatase (38-126) U/L Serum Total Protein (6.3-8.2) g/dL Albumin (3.5-5.0) g/dL 03/19/25 03/19/25 03/20/25 Range/Units 16:41 21:54 04:43 WBC 10.7 H (4.23-9.07) x10^3/uL RBC 4.26 L (4.63-6.08) x10^6/uL Hgb 12.3 L (13.7-17.5) g/dL Hct 37.0 L (40.1-51.0) % MCV 86.9 (79.0-92.2) fL MCH 28.9 (25.7-32.2) pg MCHC 33.2 (32.3-36.5) g/dL RDW 13.2 (11.6-14.4) % Plt Count 141 L (163-337) x10^3/uL MPV 10.7 (9.4-12.4) fL Gran % 74.7 H (34.0-67.9) % Immature Gran % (Auto) 0.6 H (0.001-0.429) % Nucleat RBC Rel Count 0.0 (0.00-0.2) % Eos # (Auto) 0.15 (0.04-0.54) x10^3/uL Immature Gran # (Auto) 0.06 H (0.001-0.031) x10^3u/L Absolute Lymphs (auto) 1.40 (1.32-3.57) x10^3/uL Absolute Monos (auto) 1.04 H (0.30-0.82) x10^3/uL Absolute Nucleated RBC 0.00 (0.00-0.012) x10^3u/L Lymphocytes % 13.1 L (21.8-53.1) % Monocytes % 9.7 (5.3-12.2) % Eosinophils % 1.4 (0.8-7.0) % Basophils % 0.5 (0.2-1.2) % Absolute Granulocytes 7.98 H (1.78-5.38) x10^3/uL Basophils # 0.05 (0.01-0.08) x10^3/uL Sodium (135-145) mmol/L Potassium (3.5-5.1) mmol/L Chloride (98-107) mmol/L Carbon Dioxide (22-30) mmol/L Anion Gap (5-15) MEQ/L BUN (9-20) mg/dL Creatinine (0.66-1.25) mg/dL Estimated GFR ML/MIN Glucose (74-106) mg/dL POC Glucometer 301 H 211 H (74 to 106) mg/dL Hemoglobin A1c (4.5-6.0) % Calcium (8.4-10.2) mg/dL Total Bilirubin (0.2-1.3) mg/dL AST (17-59) U/L ALT (0-50) U/L Alkaline Phosphatase (38-126) U/L Serum Total Protein (6.3-8.2) g/dL Albumin (3.5-5.0) g/dL 03/20/25 03/20/25 Range/Units 04:43 07:27 WBC (4.23-9.07) x10^3/uL RBC (4.63-6.08) x10^6/uL Hgb (13.7-17.5) g/dL Hct (40.1-51.0) % MCV (79.0-92.2) fL MCH (25.7-32.2) pg MCHC (32.3-36.5) g/dL RDW (11.6-14.4) % Plt Count (163-337) x10^3/uL MPV (9.4-12.4) fL Gran % (34.0-67.9) % Immature Gran % (Auto) (0.001-0.429) % Nucleat RBC Rel Count (0.00-0.2) % Eos # (Auto) (0.04-0.54) x10^3/uL Immature Gran # (Auto) (0.001-0.031) x10^3u/L Absolute Lymphs (auto) (1.32-3.57) x10^3/uL Absolute Monos (auto) (0.30-0.82) x10^3/uL Absolute Nucleated RBC (0.00-0.012) x10^3u/L Lymphocytes % (21.8-53.1) % Monocytes % (5.3-12.2) % Eosinophils % (0.8-7.0) % Basophils % (0.2-1.2) % Absolute Granulocytes (1.78-5.38) x10^3/uL Basophils # (0.01-0.08) x10^3/uL Sodium 130 L (135-145) mmol/L Potassium 4.0 (3.5-5.1) mmol/L Chloride 106 (98-107) mmol/L Carbon Dioxide 19 L (22-30) mmol/L Anion Gap 9.5 (5-15) MEQ/L BUN 25 H (9-20) mg/dL Creatinine 0.92 (0.66-1.25) mg/dL Estimated GFR 95.8 ML/MIN Glucose 226 H (74-106) mg/dL POC Glucometer 232 H (74 to 106) mg/dL Hemoglobin A1c (4.5-6.0) % Calcium 7.9 L (8.4-10.2) mg/dL Total Bilirubin 0.70 (0.2-1.3) mg/dL AST 19 (17-59) U/L ALT 18 (0-50) U/L Alkaline Phosphatase 60 (38-126) U/L Serum Total Protein 5.8 L (6.3-8.2) g/dL Albumin 3.1 L (3.5-5.0) g/dL Accuchecks Date 03/20/25 Date 03/19/25 Date 03/19/25 Time 07:35 Time 16:45 Time 10:03 - Radiology Impressions Radiology Exams & Impressions: Radiology Procedures Category Date Time Status CTA ABD/PEL W AND/OR W/O CONTR [CT] Stat Exams 03/19/25 03:26 Completed TESTICLE [US] Stat Exams 03/19/25 01:24 Completed JAEL Encounter - JAEL Encounter Attestation JAEL Encounter Attestation: "GunnareenandTARIK Perez on 03/19/2025 andhavediscussed pertinent aspects of their care with Marta Peña agree with the history, physical exam (any modifications based on my personal exam will be noted below), assessment, and plan as outlined in original note. Please see immediately below for my summary of findings and additional assessment and plan along with any meaningful corrections/explanations to the Subjective/Objective portions of the JAEL note will be noted." My portion of the encounter took place via telemedicine. -Patient admitted with right inguinal hernia (no complication seen on CT) and bilateral scrotal/testicular pain and redness with ultrasound findings concerning for epididymitis-orchitis but no torsion. Patient underwent inguinal hernia repair by Dr. Sutton however will need continued antibiotics for epididymitis-orchitis. Will continue to monitor for clinical improvement.
[2025-03-19] MEDS ORDERED: Zofran 4 MG/2 ML VIAL IV PRN (07:34)
[2025-03-19] MEDS ORDERED: TYLENOL 325 MG PO PRN (07:34)
--- NOTE | 2025-03-19 08:43 | XRAY ---
Indication: Bilateral groin pain. Two-dimensional testicular sonogram performed. Comparison: None Both testicles are homogeneous in echogenicity. Right testicle measures 3.9 x 2.1 x 3.1 cm and left measures 3.7 x 2.2 x 3.2 cm. Both testicles demonstrates mild hyperemic color Doppler flow favoring orchitis. Left and right epididymis appears prominent also with hyperemic color Doppler flow favoring epididymitis. Left epididymis demonstrates 4 mm cysts. Small bilateral hydroceles presumed reactive. No suspicious extratesticular mass or inguinal hernia. Impression: Sonographic features favoring bilateral epididymal orchitis with reactive hydrocele. Comment: Preliminary report was given.
[2025-03-19] MEDS: HUMALOG SQ PRN (09:06)
[2025-03-19] MEDS: LEVOFLOXACIN 750MG/150ML D5W 750 MG/150 ML BAG IV SCH (09:50)
[2025-03-19] MEDS ORDERED: Lactated Ringers 1,000 ML IV ONE (10:12)
[2025-03-19] MEDS ORDERED: Sensorcaine 0.25% 10 ML ONE (10:12)
[2025-03-19] MEDS ORDERED: propofoL IV ONE (10:26)
[2025-03-19] MEDS ORDERED: ROCURONIUM BROMIDE IV ONE ×2 (10:26→11:22)
[2025-03-19] MEDS ORDERED: BREVIBLOC 100 MG/10 ML IV ONE (10:26)
[2025-03-19] MEDS ORDERED: BRIDION 200MG/2ML IV ONE (11:35)
[2025-03-19] MEDS ORDERED: TORAdol 30 mg Injection ONE (11:45)
[2025-03-19] MEDS ORDERED: SUBLIMAZE 100 MCG/2 ML ONE (11:46)
[2025-03-19] MEDS ORDERED: Zofran 4 MG/2 ML VIAL IVIM PRN (13:06)
[2025-03-19] MEDS ORDERED: FEVERALL 650 MG RC PRN (13:06)
[2025-03-19] MEDS ORDERED: Dextrose 5% -0.45 NaCl 1000 ML 1,000 ML IV SCH (13:15)
[2025-03-19] MEDS: NORCO 5/325 MG PO PRN (13:17)
[2025-03-19] MEDS: FLAGYL 500 MG IVPB 500 MG/100 ML BAG IV SCH (13:19)
--- NOTE | 2025-03-19 16:10 | CONS ---
A 59-year-old male out on the floor. I got called from the ER 5:00. I saw him on the floor at 9 o'clock after surgical review meeting. He is alert and oriented. He is moving around some in bed. His parents are present. He is 59 years old. He is mentally handicapped. He had an appendectomy in [address], [address]. Sifuentes with Dr. Roger giving the anesthetic. It is a low right paramedian incision. Right below this he has a hard, firm lump consistent with incarcerated bowel. He presented to the emergency room with bilateral testicular pain exquisite. I can understand the right side. I am not sure I understand the left side. Both his testicles are down in the scrotum and are normal. He certainly needs this acutely surgically repaired. He has been n.p.o. since he came in at 5. We will have Anesthesia see him and we are posting him in the OR for surgical intervention today.
[2025-03-20 05:11] LABS: BASOPHIL % 0.5 % (0.2-1.2); Basophil (Absolute #) 0.05 x10^3/uL (0.01-0.08); Eosinophil (Absolute #) 0.15 x10^3/uL (0.04-0.54); Hematocrit 37.0 % (40.1-51.0); Hemoglobin 12.3 g/dL (13.7-17.5); IMMATURE GRAN # 0.06 x10^3u/L (0.001-0.031); IMMATURE GRAN % 0.6 % (0.001-0.429); Lymphocyte (Absolute #) 1.40 x10^3/uL (1.32-3.57); Mean Corpuscular Hemoglobin 28.9 pg (25.7-32.2); Mean Corpuscular Hgb Concent. 33.2 g/dL (32.3-36.5); Monocyte (Absolute #) 1.04 x10^3/uL (0.30-0.82); NUCLEATED RBC # 0.00 x10^3u/L (0.00-0.012); NUCLEATED RBC % 0.0 % (0.00-0.2); Platelet Count 141 x10^3/uL (163-337); Red Blood Count 4.26 x10^6/uL (4.63-6.08); White Blood Count 10.7 x10^3/uL (4.23-9.07)
[2025-03-20 05:33] LABS: Calcium 7.9 mg/dL (8.4-10.2); Carbon Dioxide 19.0 mmol/L (22-30); Creatinine 1 0.92 mg/dL (0.66-1.25); EST GLOMERULAR FILTRATION RATE 95.8 ML/MIN; Glucose 226.0 mg/dL (74-106); Potassium 4.0 mmol/L (3.5-5.1); SGOT/AST 19.0 U/L (17-59); SGPT/ALT 18.0 U/L (0-50); Total Protein 5.8 g/dL (6.3-8.2)
[2025-03-20] MEDS: Lantus Insulin SQ SCH (08:12)
[2025-03-20] MEDS ORDERED: ROCEPHIN 1 GM / 100 ML NaCl 1 GM/100 ML IVPB IV SCH (10:00)
[2025-03-20] MEDS: Flomax 0.4 MG PO SCH (10:08)
--- NOTE | 2025-03-20 10:40 | OP ---
SURGERY DATE/TIME: 03/19/2025 [id number] PREOPERATIVE DIAGNOSIS: Incarcerated right inguinal hernia. POSTOPERATIVE DIAGNOSIS: Incarcerated right inguinal hernia. PROCEDURE: Open right inguinal hernia repair with mesh. SURGEON: Adam Sutton MD. ANESTHETIC: General. COMPLICATIONS: None. CONDITION: Stable. DESCRIPTION OF PROCEDURE AND FINDINGS: Patient presented with symptomatic incarcerated hernia. CT scan demonstrating bowel in hernia. Hernia was hard and firm at the bedside just an hour before the procedure. In the holding area, he said his pain was better and I believe it reduced in the holding, but the diagnosis is still incarcerated right inguinal hernia. Routine prep and drape. Marking pen. Marcaine 0.25%. Curvilinear incision. External oblique opened. Cord skeletonized; large, thick cord. A 5-inch indirect hernia sac. There was some sliding incarcerated omentum at the top of the sac, which was mobilized. A portion of omentum was resected. The upper edge was tied off, reduced back in. The sac was highly ligated with 0 Prolene under direct visualization. The internal ring was just a little loose. The floor was buttressed with 0 Prolene starting and coming up to the internal ring in a Bassini-type herniorrhaphy. Small 1.5 cm relaxing incision in the mid conjoined tendon, curvilinear. It was totally covered over by other fascia. This repair seems satisfactory. Field was dry. Cord and ilioinguinal nerve laid back in its natural position. External oblique closed with 2-0 Vicryl, Javier fascia with 3-0 Vicryl, and skin closed with 4-0 Vicryl. Steri-Strips applied. Sterile dressing applied. Findings discussed with family. Patient tolerated the procedure satisfactorily.
--- NOTE | 2025-03-20 12:09 | PCM.NOTE ---
Date and Time: 03/20/25 1204 Subjective Assessment: is a 59 year old male with a history of benign prostatic hypertrophy, hypertension, type 2 diabetes mellitus, and right inguinal hernia presented with three days of worsening lower abdominal and testicular pain radiating to the low back. He denied fever, chills, nausea, vomiting, or trauma. The pain had been constant but intensified with a numerical rating of 10/10 over the past several hours. He reported nonadherence to antihypertensive therapy, stating he had not taken lisinopril in a while. He also reports that he longer takes his diabetes medications. He admitted to poor medical follow-up but noted a scheduled upcoming primary care visit. His father was present and voiced no additional concerns. On arrival, the patient was markedly hypertensive at 207/130 mm Hg, afebrile, and uncomfortable. Physical examination revealed lower abdominal tenderness, a palpable right inguinal hernia mildly tender but reducible, and bilateral scrotal tenderness with erythema, no torsion signs. Laboratory findings showed mild leukocytosis at 9.6, hyponatremia at 130, hyperglycemia at 362 (corrected sodium 133), low bicarbonate at 20, and BUN elevation to 28 with normal creatininesuggesting dehydration and metabolic stress without acute kidney injury. Urinalysis was unremarkable, and chlamydia/gonorrhea NAAT testing was negative. CTA of the abdomen and pelvis revealed uncomplicated cholelithiasis, tiny right renal calculi, and a distended urinary bladder with an irregular wall thickened to 78 mm, raising concern for cystitis or outlet obstruction. A right inguinal hernia containing bowel loops was seen without obstruction or strangulation. Multiple sigmoid diverticula were noted without inflammation. No aortic dissection, aneurysm, pseudoaneurysm, or active extravasation was seen. Ultrasound of the testicles showed homogeneous echogenicity bilaterally, with mild hyperemic Doppler flow indicating orchitis, and prominent, hyperemic epididymides suggesting epididymitis. A 4 mm left epididymal cyst and small bilateral reactive hydroceles were present. No extratesticular mass or hernia was visualized. The patient received IV fluids, ceftriaxone, and metronidazole in the emergency department for broad genitourinary and intra-abdominal coverage. He was made NPO. Case was discussed with Dr. Adam Sutton , and the patient was admitted for continued IV antibiotics, BP control, glucose optimization, and surgical observation. Patient given Hydralazine 10mg with BP coming down to 156/81. Blood sugar treated with SSI. 10/17/25: Patient seen at bedside on postoperative day 1 following right inguinal hernia repair. He reports that scrotal pain has resolved, with only mild incisional discomfort at the surgical site. No erythema, drainage, or hematoma noted; incision remains clean, dry, and intact. He is ambulating in the room, voiding spontaneously, and tolerating oral intake without nausea or vomiting. Discussed laboratory results showing hemoglobin A1c 11.9%, consistent with severe, chronic hyperglycemia. Reviewed the need to transition to a basalbolus insulin regimen to achieve better glycemic control. The patient expressed understanding and agreement with the plan. Education provided regarding the role of long-acting and rapid-acting insulin, blood glucose monitoring, and dietary adjustments. Orders placed for diabetes education and nutrition consult to reinforce lifestyle and medication teaching prior to discharge.Will supply all necessary home-use materials, including lancets, glucose test strips, pen needles, and insulin pens. Surgical team noted that the patients previously identified bilateral epididymitis and orchitis are considered a separate ongoing issue from the hernia repair. Current antibiotic therapy is to be continued per surgical recommendations. Scrotal swelling is improving, and no new tenderness or erythema is reported. - Review of Systems Constitutional: No Symptoms Eyes: No Symptoms Ears, Nose, & Throat: No Symptoms Respiratory: No Symptoms Cardiac: No Symptoms Abdominal/Gastrointestinal: No Symptoms Genitourinary Symptoms: No Symptoms Musculoskeletal: No Symptoms Skin: No Symptoms Neurological: No Symptoms Psychological: No Symptoms Endocrine: No Symptoms Hematologic/Lymphatic: No Symptoms Immunological/Allergic: No Symptoms Objective Exam General Appearance: no apparent distress Neurologic Exam: alert, oriented x 3, cooperative Skin Exam: normal color, other (surgical incision with surgical dressing CDI- Scrotal edema resolved -ecchymosis to right lateral testicle) Eye Exam: PERRL Ears, Nose, Throat Exam: normal ENT inspection Neck Exam: normal inspection Respiratory Exam: normal breath sounds, lungs clear Cardiovascular Exam: regular rate/rhythm, normal heart sounds Gastrointestinal/Abdomen Exam: soft, normal bowel sounds Extremity Exam: normal inspection Back Exam: normal inspection Male Genitalia Exam: deferred Rectal Exam: deferred Objective Data Vital Signs: Vital Signs - 24 hr Temp Pulse Resp BP Pulse Ox 03/20/25 11:24 98.5 F 73 16 177/95 98 03/20/25 07:33 97.8 F 72 16 168/78 96 03/20/25 04:00 97.7 F 71 16 163/88 98 03/20/25 00:00 71 03/19/25 20:00 97.6 F 70 16 137/77 99 03/19/25 17:00 98.0 F 76 16 159/82 97 03/19/25 16:00 97.9 F 76 16 147/76 96 03/19/25 14:00 74 137/80 98 03/19/25 12:35 98 F 64 18 144/81 98 Pain Assessment - Last Documented Pain Intensity 4 Pain Scale Used 0-10 Pain Scale Intake and Output: Intake & Output 03/18/25 03/19/25 03/20/25 03/21/25 11:59 11:59 11:59 11:59 Intake Total 3795 Balance 3795 Weight 78.7 kg 78.4 kg Lab Results: Lab Results-Last 24 Hours 03/19/25 03/19/25 03/19/25 Range/Units 12:04 16:41 21:54 WBC (4.23-9.07) x10^3/uL RBC (4.63-6.08) x10^6/uL Hgb (13.7-17.5) g/dL Hct (40.1-51.0) % MCV (79.0-92.2) fL MCH (25.7-32.2) pg MCHC (32.3-36.5) g/dL RDW (11.6-14.4) % Plt Count (163-337) x10^3/uL MPV (9.4-12.4) fL Gran % (34.0-67.9) % Immature Gran % (Auto) (0.001-0.429) % Nucleat RBC Rel Count (0.00-0.2) % Eos # (Auto) (0.04-0.54) x10^3/uL Immature Gran # (Auto) (0.001-0.031) x10^3u/L Absolute Lymphs (auto) (1.32-3.57) x10^3/uL Absolute Monos (auto) (0.30-0.82) x10^3/uL Absolute Nucleated RBC (0.00-0.012) x10^3u/L Lymphocytes % (21.8-53.1) % Monocytes % (5.3-12.2) % Eosinophils % (0.8-7.0) % Basophils % (0.2-1.2) % Absolute Granulocytes (1.78-5.38) x10^3/uL Basophils # (0.01-0.08) x10^3/uL Sodium (135-145) mmol/L Potassium (3.5-5.1) mmol/L Chloride (98-107) mmol/L Carbon Dioxide (22-30) mmol/L Anion Gap (5-15) MEQ/L BUN (9-20) mg/dL Creatinine (0.66-1.25) mg/dL Estimated GFR ML/MIN Glucose (74-106) mg/dL POC Glucometer 185 H 301 H 211 H (74 to 106) mg/dL Calcium (8.4-10.2) mg/dL Total Bilirubin (0.2-1.3) mg/dL AST (17-59) U/L ALT (0-50) U/L Alkaline Phosphatase (38-126) U/L Serum Total Protein (6.3-8.2) g/dL Albumin (3.5-5.0) g/dL 03/20/25 03/20/25 03/20/25 Range/Units 04:43 04:43 07:27 WBC 10.7 H (4.23-9.07) x10^3/uL RBC 4.26 L (4.63-6.08) x10^6/uL Hgb 12.3 L (13.7-17.5) g/dL Hct 37.0 L (40.1-51.0) % MCV 86.9 (79.0-92.2) fL MCH 28.9 (25.7-32.2) pg MCHC 33.2 (32.3-36.5) g/dL RDW 13.2 (11.6-14.4) % Plt Count 141 L (163-337) x10^3/uL MPV 10.7 (9.4-12.4) fL Gran % 74.7 H (34.0-67.9) % Immature Gran % (Auto) 0.6 H (0.001-0.429) % Nucleat RBC Rel Count 0.0 (0.00-0.2) % Eos # (Auto) 0.15 (0.04-0.54) x10^3/uL Immature Gran # (Auto) 0.06 H (0.001-0.031) x10^3u/L Absolute Lymphs (auto) 1.40 (1.32-3.57) x10^3/uL Absolute Monos (auto) 1.04 H (0.30-0.82) x10^3/uL Absolute Nucleated RBC 0.00 (0.00-0.012) x10^3u/L Lymphocytes % 13.1 L (21.8-53.1) % Monocytes % 9.7 (5.3-12.2) % Eosinophils % 1.4 (0.8-7.0) % Basophils % 0.5 (0.2-1.2) % Absolute Granulocytes 7.98 H (1.78-5.38) x10^3/uL Basophils # 0.05 (0.01-0.08) x10^3/uL Sodium 130 L (135-145) mmol/L Potassium 4.0 (3.5-5.1) mmol/L Chloride 106 (98-107) mmol/L Carbon Dioxide 19 L (22-30) mmol/L Anion Gap 9.5 (5-15) MEQ/L BUN 25 H (9-20) mg/dL Creatinine 0.92 (0.66-1.25) mg/dL Estimated GFR 95.8 ML/MIN Glucose 226 H (74-106) mg/dL POC Glucometer 232 H (74 to 106) mg/dL Calcium 7.9 L (8.4-10.2) mg/dL Total Bilirubin 0.70 (0.2-1.3) mg/dL AST 19 (17-59) U/L ALT 18 (0-50) U/L Alkaline Phosphatase 60 (38-126) U/L Serum Total Protein 5.8 L (6.3-8.2) g/dL Albumin 3.1 L (3.5-5.0) g/dL 03/20/25 Range/Units 11:34 WBC (4.23-9.07) x10^3/uL RBC (4.63-6.08) x10^6/uL Hgb (13.7-17.5) g/dL Hct (40.1-51.0) % MCV (79.0-92.2) fL MCH (25.7-32.2) pg MCHC (32.3-36.5) g/dL RDW (11.6-14.4) % Plt Count (163-337) x10^3/uL MPV (9.4-12.4) fL Gran % (34.0-67.9) % Immature Gran % (Auto) (0.001-0.429) % Nucleat RBC Rel Count (0.00-0.2) % Eos # (Auto) (0.04-0.54) x10^3/uL Immature Gran # (Auto) (0.001-0.031) x10^3u/L Absolute Lymphs (auto) (1.32-3.57) x10^3/uL Absolute Monos (auto) (0.30-0.82) x10^3/uL Absolute Nucleated RBC (0.00-0.012) x10^3u/L Lymphocytes % (21.8-53.1) % Monocytes % (5.3-12.2) % Eosinophils % (0.8-7.0) % Basophils % (0.2-1.2) % Absolute Granulocytes (1.78-5.38) x10^3/uL Basophils # (0.01-0.08) x10^3/uL Sodium (135-145) mmol/L Potassium (3.5-5.1) mmol/L Chloride (98-107) mmol/L Carbon Dioxide (22-30) mmol/L Anion Gap (5-15) MEQ/L BUN (9-20) mg/dL Creatinine (0.66-1.25) mg/dL Estimated GFR ML/MIN Glucose (74-106) mg/dL POC Glucometer 311 H (74 to 106) mg/dL Calcium (8.4-10.2) mg/dL Total Bilirubin (0.2-1.3) mg/dL AST (17-59) U/L ALT (0-50) U/L Alkaline Phosphatase (38-126) U/L Serum Total Protein (6.3-8.2) g/dL Albumin (3.5-5.0) g/dL Radiology Exams: Radiology Procedures Category Date Time Status CTA ABD/PEL W AND/OR W/O CONTR [CT] Stat Exams 03/19/25 03:26 Completed TESTICLE [US] Stat Exams 03/19/25 01:24 Completed Medications: Medications Generic Name Dose Route Start Last Admin Trade Name Freq PRN Reason Stop Dose Admin Acetaminophen 650 mg 03/19/25 07:34 Acetaminophen 325 Mg Tablet PO 04/18/25 07:33 Q4H PRN PRN PAIN, FEVER, HEADACHE Acetaminophen 650 mg 03/19/25 13:06 Acetaminophen 650 Mg Supp.Rect RC 04/18/25 13:05 Q4H PRN PRN TEMP >100 Hydrocodone Bitart/Acetaminophen 1 tab 03/19/25 13:05 03/20/25 08:10 Hydrocodone/Apap 5/325 1 Tab Tablet PO 03/24/25 13:04 1 tab Q4H/PRN PRN Administration PAIN Metronidazole 500 mg in 100 mls @ 200 mls/hr 03/19/25 12:00 03/20/25 05:17 Flagyl 500 Mg Ivpb IV 03/22/25 13:00 200 mls/hr Q6HT JAIRO Administration Levofloxacin/Dextrose 750 mg in 150 mls @ 100 mls/hr 03/19/25 10:00 03/20/25 10:08 Levofloxacin 750mg/150ml D5w IV 03/22/25 13:00 100 mls/hr Q24H10 JAIRO Administration Sodium Chloride 1,000 mls @ 100 mls/hr 03/19/25 13:15 03/19/25 23:16 Sodium Chloride 0.9% 1000 Ml IV 04/18/25 13:14 100 mls/hr .Q10H JAIRO Administration Insulin Glargine 10 unit 03/20/25 08:00 03/20/25 08:12 Insulin Glargine 1 Unit SQ 04/19/25 07:59 10 unit AMINSULIN JAIRO Administration Insulin Human Lispro 0 unit 03/19/25 07:34 03/20/25 08:12 Insulin Lispro 1 Unit SQ 04/18/25 07:33 2 unit UD PRN Administration HYPERGLYCEMIA Ondansetron HCl 4 mg 03/19/25 13:06 Ondansetron Hcl 4 Mg/2 Ml Vial IVIM 04/18/25 07:33 Q6H PRN PRN NAUSEA/VOMITING Tamsulosin HCl 0.4 mg 03/20/25 10:00 03/20/25 10:08 Tamsulosin Hcl 0.4 Mg Cap PO 04/19/25 09:59 0.4 mg DAILY JAIRO Administration Discontinued Medications Generic Name Dose Route Start Last Admin Trade Name Freq PRN Reason Stop Dose Admin Bupivacaine HCl Confirm 03/19/25 10:12 Bupivacaine Hcl 2.5 Mg/Ml 10 Ml Administered 03/19/25 10:13 Dose 10 ml .ROUTE .STK-MED ONE Esmolol HCl Confirm 03/19/25 10:26 Esmolol Hcl 10 Mg/Ml Vial Administered 03/19/25 10:27 Dose 100 mg IV .STK-MED ONE Fentanyl Citrate Confirm 03/19/25 11:46 Fentanyl Citrate 100 Mcg/2 Ml* Vial Administered 03/19/25 11:47 Dose 100 mcg .ROUTE .STK-MED ONE Hydralazine HCl 10 mg 03/19/25 06:39 03/19/25 06:52 Hydralazine Hcl 20 Mg/Ml Vial IV 03/19/25 06:40 10 mg STAT ONE Administration Sodium Chloride 1,000 mls @ 100 mls/hr 03/19/25 01:30 03/19/25 17:26 Sodium Chloride 0.9% 1000 Ml IV 04/18/25 01:29 Not Given .Q10H JAIRO Ceftriaxone Sodium 1 gm in 100 mls @ 200 mls/hr 03/19/25 05:03 03/19/25 05:19 Rocephin 1 Gm / 100 Ml Nacl IV 03/19/25 05:32 200 mls/hr STAT ONE 200 mls/hr Administration Metronidazole 500 mg in 100 mls @ 200 mls/hr 03/19/25 05:04 03/19/25 06:15 Flagyl 500 Mg Ivpb IV 03/19/25 05:33 200 mls/hr STAT STA Administration Ceftriaxone Sodium Confirm 03/19/25 05:17 Rocephin 1 Gm / 100 Ml Nacl Administered 03/19/25 05:18 Dose 1 gm in 100 mls @ ud IV .STK-MED ONE Ceftriaxone Sodium 1 gm in 100 mls @ 200 mls/hr 03/20/25 10:00 Rocephin 1 Gm / 100 Ml Nacl IV 04/19/25 09:59 Q24H10 JAIRO Lactated Ringer's Confirm 03/19/25 10:12 Lactated Ringers Administered 03/19/25 10:13 Dose 1,000 mls @ ud IV .STK-MED ONE Dextrose/Sodium Chloride 1,000 mls @ 50 mls/hr 03/19/25 13:15 Dextrose 5% -0.45 Nacl 1000 Ml IV 04/18/25 13:14 .Q20H [facility] Ketorolac Tromethamine Confirm 03/19/25 11:45 Ketorolac Tromethamine 30 Mg/Ml Inj Administered 03/19/25 11:46 Dose 30 mg .ROUTE .STK-MED ONE Morphine Sulfate 4 mg 03/19/25 01:21 03/19/25 01:42 Morphine Sulfate 4 Mg/Ml Injection IV 03/19/25 01:22 4 mg STAT ONE Administration Morphine Sulfate Confirm 03/19/25 01:39 Morphine Sulfate 4 Mg/Ml Injection Administered 03/19/25 01:40 Dose 4 mg .ROUTE .STK-MED ONE Morphine Sulfate 4 mg 03/19/25 03:27 03/19/25 03:34 Morphine Sulfate 4 Mg/Ml Injection IV 03/19/25 03:28 4 mg STAT ONE Administration Morphine Sulfate Confirm 03/19/25 03:30 Morphine Sulfate 4 Mg/Ml Injection Administered 03/19/25 03:31 Dose 4 mg .ROUTE .STK-MED ONE Morphine Sulfate 4 mg 03/19/25 06:38 03/19/25 06:46 Morphine Sulfate 4 Mg/Ml Injection IV 03/19/25 06:39 4 mg STAT ONE Administration Ondansetron HCl 4 mg 03/19/25 01:21 03/19/25 01:40 Ondansetron Hcl 4 Mg/2 Ml Vial IV 03/19/25 01:22 4 mg STAT ONE Administration Ondansetron HCl Confirm 03/19/25 01:38 Ondansetron Hcl 4 Mg/2 Ml Vial Administered 03/19/25 01:39 Dose 4 mg .ROUTE .STK-MED ONE Ondansetron HCl 4 mg 03/19/25 07:34 Ondansetron Hcl 4 Mg/2 Ml Vial IV 04/18/25 07:33 Q6H PRN PRN NAUSEA/VOMITING Ondansetron HCl Confirm 03/19/25 10:26 Ondansetron Hcl 4 Mg/2 Ml Vial Administered 03/19/25 10:27 Dose 4 mg .ROUTE .STK-MED ONE Propofol Confirm 03/19/25 10:26 Propofol 200 Mg/20 Ml Vial Administered 03/19/25 10:27 Dose 200 mg IV .STK-MED ONE Rocuronium [place] Confirm 03/19/25 10:26 Rocuronium [place] 50 Mg/5 Ml Vial Administered 03/19/25 10:27 Dose 50 mg IV .STK-MED ONE Rocuronium [place] Confirm 03/19/25 11:22 Rocuronium [place] 50 Mg/5 Ml Vial Administered 03/19/25 11:23 Dose 50 mg IV .STK-MED ONE Sugammadex Sodium Confirm 03/19/25 11:35 Sugammadex Sodium 200 Mg/2 Ml Vial Administered 03/19/25 11:36 Dose 200 mg IV .STK-MED ONE Assessment/Plan (1) Right inguinal hernia Current Visit: Yes Status: Acute Assessment & Plan: -CT confirmed hernia -Incarcerated, Non-Obstructed with bowel loops but no strangulation. -Maintain NPO -Pain control -Surgical consult -Monitor for obstructive symptoms. 03/20: -PODS#1- doing well, pain controlled -CMP/CBC reviewed -Surgery following - cleared from their standpoint with follow up OP Code(s): K40.90 - UNIL INGUINAL HERNIA, W/O OBST OR GANGR, NOT SPCF RECUR (2) Bilateral epididymitis Current Visit: Yes Status: Acute Assessment & Plan: -Ultrasound findings of bilateral hyperemia and enlarged epididymides, plus small reactive hydroceles, confirm infectious epididymo-orchitis. The absence of torsion, leukocytosis (9.6 ), and negative STI testing -?non-STI, enteric source related to bladder outlet obstruction and reflux of infected urine. -PVR with bladder scan -CTA correlation shows a distended bladder with irregular wall thickening (78 mm) consistent with this mechanism. -WBC reivewed at 9.6 and elevated BUN of 28 , suggesting a systemic inflammatory response with mild dehydration. Urinalysis was unremarkable, and NAAT for chlamydia and gonorrhea was negative, supporting an enteric etiology rather than a sexually transmitted infection. -Continue IV ceftriaxone and metronidazole to cover enteric and anaerobic organisms. -add one time dose levaquin -Consider transfer for urology and ID Maintain NPO status, -Continue IVF -Monitor for fever or progression of swelling. Provide analgesics, scrotal support, and bedrest. -Obtain urine and blood cultures -CBC and CMP reviewed - trend 03/20: -Surgery feels this is separate issue- will continue Levaquin and Flagyl -Blood cultures pending -WBC reviewed at 10.7-trend Code(s): N45.1 - EPIDIDYMITIS (3) Bilateral orchitis Current Visit: Yes Status: Acute Assessment & Plan: -see above Code(s): N45.2 - ORCHITIS (4) Hypertensive urgency Current Visit: Yes Status: Acute Assessment & Plan: -The patient presented with a blood pressure of 207/130 mm Hg, likely exacerbated by pain, stress, and nonadherence to antihypertensives (off lisinopril for a while). -No acute end-organ damage was notedrenal function preserved (creatinine normal), no neurologic deficits, and no cardiac ischemia reported. -IV hydralazine 10mg given -target 2025% reduction over several hours -repeat BP 156/81 -Once PO resumed and tolerated, restart oral antihypertensive therapy - Continuous BP and cardiac monitoring, pain control, and medication adherence counseling are essential prior to discharge. 03/20: -BP remains elevated- patient reports he has been prescribed meds for HTN but non-compliant -Will start amlodipine 5mg - monitor for adjustments Code(s): I16.0 - HYPERTENSIVE URGENCY (5) Hyponatremia Current Visit: Yes Status: Acute Assessment & Plan: -sodium of 130 corrects to approximately 133 accounting for hyperglycemia, indicating pseudohyponatremia rather than true sodium loss. Accompanied by bicarbonate 20 mmol/L, consistent with mild metabolic acidosis in the setting of hyperglycemia and dehydration. -Continue IVF - Monitor BMP q6h for sodium correction and glucose improvement 03/20: -Sodium level at 130 -continue to correct hyperglycemia Code(s): E87.1 - HYPO-OSMOLALITY AND HYPONATREMIA (6) Hyperglycemia Current Visit: Yes Status: Acute Assessment & Plan: -Blood glucose elevated at 362 -Manage with basal-bolus insulin therapy or correctional sliding-scale insulin while NPO. H -Hold oral agents. 03/20: -Patient reports non-compliance with home meds -A1c at 11.92 -Will start basal/bolus regimen IP with education - Patient will need to discharge on regimen- nutrition consult, diabetic education, lancets, strips, glucometer Code(s): R73.9 - HYPERGLYCEMIA, UNSPECIFIED (7) Bladder wall thickening Current Visit: Yes Status: Acute Assessment & Plan: -CT abdomen/pelvis showed a distended urinary bladder with thickened, irregular wall (78 mm), consistent with chronic outlet obstruction from benign prostatic hypertrophy and possible cystitis. Urinalysis was negative for infection. -Monitor post-void residual with bladder scan, assess for urinary retention, and initiate tamsulosin once oral intake resumes. -Maintain hydration to aid bladder decompression. - Consider urology consultation for outpatient follow-up and prostate management. 03/20: -Bladder scan per nursing with no residual - Flomax continued Code(s): N32.89 - OTHER SPECIFIED DISORDERS OF BLADDER (8) Prerenal azotemia Current Visit: Yes Status: Acute Assessment & Plan: -Elevation of BUN with preserved creatinine indicates volume depletion from dehydration, osmotic diuresis, and reduced intake. -Continue gentle IV hydration, monitor urine output, and trend BUN/creatinine ratio for improvement. -Avoid nephrotoxic medications. Code(s): R79.89 - OTHER SPECIFIED ABNORMAL FINDINGS OF BLOOD CHEMISTRY (9) Cholelithiasis Current Visit: Yes Status: Acute Assessment & Plan: -CT abdomen/pelvis demonstrated uncomplicated cholelithiasis with no gallbladder wall thickening or pericholecystic fluid. -No inpatient intervention required. Meat Team Lead on dietary modification and schedule outpatient surgical evaluation if symptomatic episodes develop. (10) BPH (benign prostatic hyperplasia) Current Visit: Yes Status: Acute Assessment & Plan: -CTA revealed distended bladder with irregular wall thickening (78 mm). -Urinalysis was unremarkable, -? chronic bladder outlet obstruction rather than acute infection. - Continue IV fluids and monitor urine output and post-void residuals. -Start tamsulosin 0.4 mg daily when oral intake resumes. -Arrange outpatient urology follow-up for prostate assessment and long-term management of voiding dysfunction. Code(s): N40.0 - BENIGN PROSTATIC HYPERPLASIA WITHOUT LOWER URINRY TRACT SYMP (11) DMII (diabetes mellitus, type 2) Current Visit: Yes Status: Acute Assessment & Plan: -basal-bolus insulin regimen with correctional coverage to maintain glucose [id number] mg/dL -Monitor glucose q4h, while NPO -Treat hyperglycemia before any elective surgical intervention. -Once tolerating a diet - resume ADA diet, SSI -A1c -Patient non-compliant with home meds- reports he has Metformin at home but does not take it 03/20: -see hyperglycemia above (12) HTN (hypertension) Current Visit: Yes Status: Acute Assessment & Plan: -see hypertensive urgency Code(s): K40.90 - UNIL INGUINAL HERNIA, W/O OBST OR GANGR, NOT SPCF RECUR (2) Bilateral epididymitis Current Visit: Yes Status: Acute Code(s): N45.1 - EPIDIDYMITIS (3) Bilateral orchitis Current Visit: Yes Status: Acute Code(s): N45.2 - ORCHITIS (4) Hypertensive urgency Current Visit: Yes Status: Acute Code(s): I16.0 - HYPERTENSIVE URGENCY (5) Hyponatremia Current Visit: Yes Status: Acute Code(s): E87.1 - HYPO-OSMOLALITY AND HYPONATREMIA (6) Hyperglycemia Current Visit: Yes Status: Acute Code(s): R73.9 - HYPERGLYCEMIA, UNSPECIFIED (7) Bladder wall thickening Current Visit: Yes Status: Acute Code(s): N32.89 - OTHER SPECIFIED DISORDERS OF BLADDER (8) Prerenal azotemia Current Visit: Yes Status: Acute Code(s): R79.89 - OTHER SPECIFIED ABNORMAL FINDINGS OF BLOOD CHEMISTRY (9) Cholelithiasis Current Visit: Yes Status: Acute (10) BPH (benign prostatic hyperplasia) Current Visit: Yes Status: Acute Code(s): N40.0 - BENIGN PROSTATIC HYPERPLASIA WITHOUT LOWER URINRY TRACT SYMP (11) DMII (diabetes mellitus, type 2) Current Visit: Yes Status: Acute (12) HTN (hypertension) Current Visit: Yes Status: Acute Code(s): I10 - ESSENTIAL (PRIMARY) HYPERTENSION
[2025-03-20] MEDS: NORVASC 5 MG PO ONE (12:51)
[2025-03-20] MEDS: HUMALOG SQ PRN (16:50)
[2025-03-21 04:47] VITALS: RESP 18
--- NOTE | 2025-03-21 05:34 | PCM.NOTE ---
Date and Time: 03/21/25 0533 Subjective Assessment: is a 59 year old male with a history of benign prostatic hypertrophy, hypertension, type 2 diabetes mellitus, and right inguinal hernia presented with three days of worsening lower abdominal and testicular pain radiating to the low back. He denied fever, chills, nausea, vomiting, or trauma. The pain had been constant but intensified with a numerical rating of 10/10 over the past several hours. He reported nonadherence to antihypertensive therapy, stating he had not taken lisinopril in a while. He also reports that he longer takes his diabetes medications. He admitted to poor medical follow-up but noted a scheduled upcoming primary care visit. His father was present and voiced no additional concerns. On arrival, the patient was markedly hypertensive at 207/130 mm Hg, afebrile, and uncomfortable. Physical examination revealed lower abdominal tenderness, a palpable right inguinal hernia mildly tender but reducible, and bilateral scrotal tenderness with erythema, no torsion signs. Laboratory findings showed mild leukocytosis at 9.6, hyponatremia at 130, hyperglycemia at 362 (corrected sodium 133), low bicarbonate at 20, and BUN elevation to 28 with normal creatininesuggesting dehydration and metabolic stress without acute kidney injury. Urinalysis was unremarkable, and chlamydia/gonorrhea NAAT testing was negative. CTA of the abdomen and pelvis revealed uncomplicated cholelithiasis, tiny right renal calculi, and a distended urinary bladder with an irregular wall thickened to 78 mm, raising concern for cystitis or outlet obstruction. A right inguinal hernia containing bowel loops was seen without obstruction or strangulation. Multiple sigmoid diverticula were noted without inflammation. No aortic dissection, aneurysm, pseudoaneurysm, or active extravasation was seen. Ultrasound of the testicles showed homogeneous echogenicity bilaterally, with mild hyperemic Doppler flow indicating orchitis, and prominent, hyperemic epididymides suggesting epididymitis. A 4 mm left epididymal cyst and small bilateral reactive hydroceles were present. No extratesticular mass or hernia was visualized. The patient received IV fluids, ceftriaxone, and metronidazole in the emergency department for broad genitourinary and intra-abdominal coverage. He was made NPO. Case was discussed with Dr. Adam Sutton , and the patient was admitted for continued IV antibiotics, BP control, glucose optimization, and surgical observation. Patient given Hydralazine 10mg with BP coming down to 156/81. Blood sugar treated with SSI. 10/17/25: Patient seen at bedside on postoperative day 1 following right inguinal hernia repair. He reports that scrotal pain has resolved, with only mild incisional discomfort at the surgical site. No erythema, drainage, or hematoma noted; incision remains clean, dry, and intact. He is ambulating in the room, voiding spontaneously, and tolerating oral intake without nausea or vomiting. Discussed laboratory results showing hemoglobin A1c 11.9%, consistent with severe, chronic hyperglycemia. Reviewed the need to transition to a basalbolus insulin regimen to achieve better glycemic control. The patient expressed understanding and agreement with the plan. Education provided regarding the role of long-acting and rapid-acting insulin, blood glucose monitoring, and dietary adjustments. Orders placed for diabetes education and nutrition consult to reinforce lifestyle and medication teaching prior to discharge.Will supply all necessary home-use materials, including lancets, glucose test strips, pen needles, and insulin pens. Surgical team noted that the patients previously identified bilateral epididymitis and orchitis are considered a separate ongoing issue from the hernia repair. Current antibiotic therapy is to be continued per surgical recommendations. Scrotal swelling is improving, and no new tenderness or erythema is reported. Objective Data Vital Signs: Vital Signs - 24 hr Temp Pulse Resp BP Pulse Ox 03/21/25 04:00 97.6 F 77 18 163/86 96 03/20/25 23:28 98.3 F 81 22 157/85 97 03/20/25 19:47 98.3 F 91 H 18 156/76 97 03/20/25 16:00 98.7 F 78 16 160/74 97 03/20/25 11:24 98.5 F 73 16 177/95 98 03/20/25 07:33 97.8 F 72 16 168/78 96 Pain Assessment - Last Documented Pain Intensity 8 Pain Scale Used 0-10 Pain Scale Intake and Output: Intake & Output 03/18/25 03/19/25 03/20/25 03/21/25 11:59 11:59 11:59 11:59 Intake Total 3795 4305 Balance 3795 4305 Weight 78.7 kg 78.4 kg Lab Results: Lab Results-Last 24 Hours 03/20/25 03/20/25 03/20/25 Range/Units 04:43 07:27 11:34 Sodium 130 L (135-145) mmol/L Potassium 4.0 (3.5-5.1) mmol/L Chloride 106 (98-107) mmol/L Carbon Dioxide 19 L (22-30) mmol/L Anion Gap 9.5 (5-15) MEQ/L BUN 25 H (9-20) mg/dL Creatinine 0.92 (0.66-1.25) mg/dL Estimated GFR 95.8 ML/MIN Glucose 226 H (74-106) mg/dL POC Glucometer 232 H 311 H (74 to 106) mg/dL Calcium 7.9 L (8.4-10.2) mg/dL Total Bilirubin 0.70 (0.2-1.3) mg/dL AST 19 (17-59) U/L ALT 18 (0-50) U/L Alkaline Phosphatase 60 (38-126) U/L Serum Total Protein 5.8 L (6.3-8.2) g/dL Albumin 3.1 L (3.5-5.0) g/dL 03/20/25 03/20/25 Range/Units 16:13 21:10 Sodium (135-145) mmol/L Potassium (3.5-5.1) mmol/L Chloride (98-107) mmol/L Carbon Dioxide (22-30) mmol/L Anion Gap (5-15) MEQ/L BUN (9-20) mg/dL Creatinine (0.66-1.25) mg/dL Estimated GFR ML/MIN Glucose (74-106) mg/dL POC Glucometer 306 H 259 H (74 to 106) mg/dL Calcium (8.4-10.2) mg/dL Total Bilirubin (0.2-1.3) mg/dL AST (17-59) U/L ALT (0-50) U/L Alkaline Phosphatase (38-126) U/L Serum Total Protein (6.3-8.2) g/dL Albumin (3.5-5.0) g/dL Medications: Medications Generic Name Dose Route Start Last Admin Trade Name Freq PRN Reason Stop Dose Admin Acetaminophen 650 mg 03/19/25 07:34 Acetaminophen 325 Mg Tablet PO 04/18/25 07:33 Q4H PRN PRN PAIN, FEVER, HEADACHE Acetaminophen 650 mg 03/19/25 13:06 Acetaminophen 650 Mg Supp.Rect RC 04/18/25 13:05 Q4H PRN PRN TEMP >100 Hydrocodone Bitart/Acetaminophen 1 tab 03/19/25 13:05 03/21/25 04:16 Hydrocodone/Apap 5/325 1 Tab Tablet PO 03/24/25 13:04 1 tab Q4H/PRN PRN Administration PAIN Amlodipine Besylate 5 mg 03/21/25 10:00 Amlodipine Besylate 5 Mg Tablet PO 04/20/25 09:59 QAM JAIRO Metronidazole 500 mg in 100 mls @ 200 mls/hr 03/19/25 12:00 03/20/25 23:12 Flagyl 500 Mg Ivpb IV 03/22/25 13:00 200 mls/hr Q6HT JAIRO Administration Levofloxacin/Dextrose 750 mg in 150 mls @ 100 mls/hr 03/19/25 10:00 03/20/25 10:08 Levofloxacin 750mg/150ml D5w IV 03/22/25 13:00 100 mls/hr Q24H10 JAIRO Administration Sodium Chloride 1,000 mls @ 100 mls/hr 03/19/25 13:15 03/21/25 00:43 Sodium Chloride 0.9% 1000 Ml IV 04/18/25 13:14 100 mls/hr .Q10H JAIRO Administration Insulin Glargine 10 unit 03/20/25 08:00 03/20/25 08:12 Insulin Glargine 1 Unit SQ 04/19/25 07:59 10 unit AMINSULIN JAIRO Administration Insulin Human Lispro 0 unit 03/20/25 16:24 03/20/25 21:37 Insulin Lispro 1 Unit SQ 04/19/25 16:23 7 unit UD PRN Administration HYPERGLYCEMIA Ondansetron HCl 4 mg 03/19/25 13:06 Ondansetron Hcl 4 Mg/2 Ml Vial IVIM 04/18/25 07:33 Q6H PRN PRN NAUSEA/VOMITING Tamsulosin HCl 0.4 mg 03/20/25 10:00 03/20/25 10:08 Tamsulosin Hcl 0.4 Mg Cap PO 04/19/25 09:59 0.4 mg DAILY JAIRO Administration Discontinued Medications Generic Name Dose Route Start Last Admin Trade Name Freq PRN Reason Stop Dose Admin Amlodipine Besylate 5 mg 03/20/25 12:14 03/20/25 12:51 Amlodipine Besylate 5 Mg Tablet PO 03/20/25 12:15 5 mg STAT ONE Administration Bupivacaine HCl Confirm 03/19/25 10:12 Bupivacaine Hcl 2.5 Mg/Ml 10 Ml Administered 03/19/25 10:13 Dose 10 ml .ROUTE .STK-MED ONE Esmolol HCl Confirm 03/19/25 10:26 Esmolol Hcl 10 Mg/Ml Vial Administered 03/19/25 10:27 Dose 100 mg IV .STK-MED ONE Fentanyl Citrate Confirm 03/19/25 11:46 Fentanyl Citrate 100 Mcg/2 Ml* Vial Administered 03/19/25 11:47 Dose 100 mcg .ROUTE .STK-MED ONE Hydralazine HCl 10 mg 03/19/25 06:39 03/19/25 06:52 Hydralazine Hcl 20 Mg/Ml Vial IV 03/19/25 06:40 10 mg STAT ONE Administration Sodium Chloride 1,000 mls @ 100 mls/hr 03/19/25 01:30 03/19/25 17:26 Sodium Chloride 0.9% 1000 Ml IV 04/18/25 01:29 Not Given .Q10H JAIRO Ceftriaxone Sodium 1 gm in 100 mls @ 200 mls/hr 03/19/25 05:03 03/19/25 05:19 Rocephin 1 Gm / 100 Ml Nacl IV 03/19/25 05:32 200 mls/hr STAT ONE 200 mls/hr Administration Metronidazole 500 mg in 100 mls @ 200 mls/hr 03/19/25 05:04 03/19/25 06:15 Flagyl 500 Mg Ivpb IV 03/19/25 05:33 200 mls/hr STAT STA Administration Ceftriaxone Sodium Confirm 03/19/25 05:17 Rocephin 1 Gm / 100 Ml Nacl Administered 03/19/25 05:18 Dose 1 gm in 100 mls @ ud IV .STK-MED ONE Ceftriaxone Sodium 1 gm in 100 mls @ 200 mls/hr 03/20/25 10:00 Rocephin 1 Gm / 100 Ml Nacl IV 04/19/25 09:59 Q24H10 JAIRO Lactated Ringer's Confirm 03/19/25 10:12 Lactated Ringers Administered 03/19/25 10:13 Dose 1,000 mls @ ud IV .STK-MED ONE Dextrose/Sodium Chloride 1,000 mls @ 50 mls/hr 03/19/25 13:15 Dextrose 5% -0.45 Nacl 1000 Ml IV 04/18/25 13:14 .Q20H JAIRO Insulin Human Lispro 0 unit 03/19/25 07:34 03/20/25 12:18 Insulin Lispro 1 Unit SQ 04/18/25 07:33 311 unit UD PRN Administration HYPERGLYCEMIA Ketorolac Tromethamine Confirm 03/19/25 11:45 Ketorolac Tromethamine 30 Mg/Ml Inj Administered 03/19/25 11:46 Dose 30 mg .ROUTE .STK-MED ONE Morphine Sulfate 4 mg 03/19/25 01:21 03/19/25 01:42 Morphine Sulfate 4 Mg/Ml Injection IV 03/19/25 01:22 4 mg STAT ONE Administration Morphine Sulfate Confirm 03/19/25 01:39 Morphine Sulfate 4 Mg/Ml Injection Administered 03/19/25 01:40 Dose 4 mg .ROUTE .STK-MED ONE Morphine Sulfate 4 mg 03/19/25 03:27 03/19/25 03:34 Morphine Sulfate 4 Mg/Ml Injection IV 03/19/25 03:28 4 mg STAT ONE Administration Morphine Sulfate Confirm 03/19/25 03:30 Morphine Sulfate 4 Mg/Ml Injection Administered 03/19/25 03:31 Dose 4 mg .ROUTE .STK-MED ONE Morphine Sulfate 4 mg 03/19/25 06:38 03/19/25 06:46 Morphine Sulfate 4 Mg/Ml Injection IV 03/19/25 06:39 4 mg STAT ONE Administration Ondansetron HCl 4 mg 03/19/25 01:21 03/19/25 01:40 Ondansetron Hcl 4 Mg/2 Ml Vial IV 03/19/25 01:22 4 mg STAT ONE Administration Ondansetron HCl Confirm 03/19/25 01:38 Ondansetron Hcl 4 Mg/2 Ml Vial Administered 03/19/25 01:39 Dose 4 mg .ROUTE .STK-MED ONE Ondansetron HCl 4 mg 03/19/25 07:34 Ondansetron Hcl 4 Mg/2 Ml Vial IV 04/18/25 07:33 Q6H PRN PRN NAUSEA/VOMITING Ondansetron HCl Confirm 03/19/25 10:26 Ondansetron Hcl 4 Mg/2 Ml Vial Administered 03/19/25 10:27 Dose 4 mg .ROUTE .STK-MED ONE Propofol Confirm 03/19/25 10:26 Propofol 200 Mg/20 Ml Vial Administered 03/19/25 10:27 Dose 200 mg IV .STK-MED ONE Rocuronium [place] Confirm 03/19/25 10:26 Rocuronium [place] 50 Mg/5 Ml Vial Administered 03/19/25 10:27 Dose 50 mg IV .STK-MED ONE Rocuronium [place] Confirm 03/19/25 11:22 Rocuronium [place] 50 Mg/5 Ml Vial Administered 03/19/25 11:23 Dose 50 mg IV .STK-MED ONE Sugammadex Sodium Confirm 03/19/25 11:35 Sugammadex Sodium 200 Mg/2 Ml Vial Administered 03/19/25 11:36 Dose 200 mg IV .STK-MED ONE Multi-Disciplinary Progress Notes: Multi-Disciplinary Progress Notes 03/20/25 14:40 Case Management Note by Karen Young S/W PATIENT- HE CONTINUES TO DENY ANY NEW NEEDS AT TIME OF DC. HE REPORTS HIS PARENTS LIVE CLOSE AND CAN HELP HIM IF NEEDED. PRIMARY RN NOTIFIED PER HS TO GIVE NEW DIABETIC EDUCATION D/T PATIENT HAVING NEVER DONE INSULIN BEFORE NEW RX FOR GLUCOMETER AND SUPPLIES SENT INTO [facility]- THEY ARE $0 COPAY. [facility]ARTA PRITCHETT ALSO CALLED IN 2 INSULIN PENS AND PEN NEEDLES- THESE ARE ALSO $0 COPAY Initialized on 03/20/25 14:40 - END OF NOTE Assessment/Plan (1) Right inguinal hernia Current Visit: Yes Status: Acute Assessment & Plan: -CT confirmed hernia -Incarcerated, Non-Obstructed with bowel loops but no strangulation. -Maintain NPO -Pain control -Surgical consult -Monitor for obstructive symptoms. 03/20: -PODS#1- doing well, pain controlled -CMP/CBC reviewed -Surgery following - cleared from their standpoint with follow up OP Code(s): K40.90 - UNIL INGUINAL HERNIA, W/O OBST OR GANGR, NOT SPCF RECUR (2) Bilateral epididymitis Current Visit: Yes Status: Acute Assessment & Plan: -Ultrasound findings of bilateral hyperemia and enlarged epididymides, plus smal l reactive hydroceles, confirm infectious epididymo-orchitis. The absence of torsion, leukocytosis (9.6 ), and negative STI testing -?non-STI, enteric source related to bladder outlet obstruction and reflux of infected urine. -PVR with bladder scan -CTA correlation shows a distended bladder with irregular wall thickening (78 mm) consistent with this mechanism. -WBC reivewed at 9.6 and elevated BUN of 28 , suggesting a systemic inflammatory response with mild dehydration. Urinalysis was unremarkable, and NAAT for chlamydia and gonorrhea was negative, supporting an enteric etiology rather than a sexually transmitted infection. -Continue IV ceftriaxone and metronidazole to cover enteric and anaerobic organisms. -add one time dose levaquin -Consider transfer for urology and ID Maintain NPO status, -Continue IVF -Monitor for fever or progression of swelling. Provide analgesics, scrotal support, and bedrest. -Obtain urine and blood cultures -CBC and CMP reviewed - trend 03/20: -Surgery feels this is separate issue- will continue Levaquin and Flagyl -Blood cultures pending -WBC reviewed at 10.7-trend Code(s): N45.1 - EPIDIDYMITIS (3) Bilateral orchitis Current Visit: Yes Status: Acute Assessment & Plan: -see above Code(s): N45.2 - ORCHITIS (4) Hypertensive urgency Current Visit: Yes Status: Acute Assessment & Plan: -The patient presented with a blood pressure of 207/130 mm Hg, likely exacerbated by pain, stress, and nonadherence to antihypertensives (off lisinopril for a while). -No acute end-organ damage was notedrenal function preserved (creatinine normal), no neurologic deficits, and no cardiac ischemia reported. -IV hydralazine 10mg given -target 2025% reduction over several hours -repeat BP 156/81 -Once PO resumed and tolerated, restart oral antihypertensive therapy - Continuous BP and cardiac monitoring, pain control, and medication adherence counseling are essential prior to discharge. 03/20: -BP remains elevated- patient reports he has been prescribed meds for HTN but non-compliant -Will start amlodipine 5mg - monitor for adjustments Code(s): I16.0 - HYPERTENSIVE URGENCY (5) Hyponatremia Current Visit: Yes Status: Acute Assessment & Plan: -sodium of 130 corrects to approximately 133 accounting for hyperglycemia, indicating pseudohyponatremia rather than true sodium loss. Accompanied by bicarbonate 20 mmol/L, consistent with mild metabolic acidosis in the setting of hyperglycemia and dehydration. -Continue IVF - Monitor BMP q6h for sodium correction and glucose improvement 03/20: -Sodium level at 130 -continue to correct hyperglycemia Code(s): E87.1 - HYPO-OSMOLALITY AND HYPONATREMIA (6) Hyperglycemia Current Visit: Yes Status: Acute Assessment & Plan: -Blood glucose elevated at 362 -Manage with basal-bolus insulin therapy or correctional sliding-scale insulin while NPO. H -Hold oral agents. 03/20: -Patient reports non-compliance with home meds -A1c at 11.92 -Will start basal/bolus regimen IP with education - Patient will need to discharge on regimen- nutrition consult, diabetic education, lancets, strips, glucometer Code(s): R73.9 - HYPERGLYCEMIA, UNSPECIFIED (7) Bladder wall thickening Current Visit: Yes Status: Acute Assessment & Plan: -CT abdomen/pelvis showed a distended urinary bladder with thickened, irregular wall (78 mm), consistent with chronic outlet obstruction from benign prostatic hypertrophy and possible cystitis. Urinalysis was negative for infection. -Monitor post-void residual with bladder scan, assess for urinary retention, and initiate tamsulosin once oral intake resumes. -Maintain hydration to aid bladder decompression. - Consider urology consultation for outpatient follow-up and prostate management. 03/20: -Bladder scan per nursing with no residual - Flomax continued Code(s): N32.89 - OTHER SPECIFIED DISORDERS OF BLADDER (8) Prerenal azotemia Current Visit: Yes Status: Acute Assessment & Plan: -Elevation of BUN with preserved creatinine indicates volume depletion from dehydration, osmotic diuresis, and reduced intake. -Continue gentle IV hydration, monitor urine output, and trend BUN/creatinine ratio for improvement. -Avoid nephrotoxic medications. Code(s): R79.89 - OTHER SPECIFIED ABNORMAL FINDINGS OF BLOOD CHEMISTRY (9) Cholelithiasis Current Visit: Yes Status: Acute Assessment & Plan: -CT abdomen/pelvis demonstrated uncomplicated cholelithiasis with no gallbladder wall thickening or pericholecystic fluid. -No inpatient intervention required. 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 (10) BPH (benign prostatic hyperplasia) Current Visit: Yes Status: Acute Assessment & Plan: -CTA revealed distended bladder with irregular wall thickening (78 mm). -Urinalysis was unremarkable, -? chronic bladder outlet obstruction rather than acute infection. - Continue IV fluids and monitor urine output and post-void residuals. -Start tamsulosin 0.4 mg daily when oral intake resumes. -Arrange outpatient urology follow-up for prostate assessment and long-term management of voiding dysfunction. Code(s): N40.0 - BENIGN PROSTATIC HYPERPLASIA WITHOUT LOWER URINRY TRACT SYMP (11) DMII (diabetes mellitus, type 2) Current Visit: Yes Status: Acute Assessment & Plan: -basal-bolus insulin regimen with correctional coverage to maintain glucose 192101 mg/dL -Monitor glucose q4h, while NPO -Treat hyperglycemia before any elective surgical intervention. -Once tolerating a diet - resume ADA diet, SSI -A1c -Patient non-compliant with home meds- reports he has Metformin at home but does not take it 03/20: -see hyperglycemia above VTE: SCD for now PPI: protonix Dispo: 2-3 days Code status: Full Code Plan of care time spent > 40 mins Code(s): K40.90 - UNIL INGUINAL HERNIA, W/O OBST OR GANGR, NOT SPCF RECUR (2) Bilateral epididymitis Current Visit: Yes Status: Acute Code(s): N45.1 - EPIDIDYMITIS (3) Bilateral orchitis Current Visit: Yes Status: Acute Code(s): N45.2 - ORCHITIS (4) Hypertensive urgency Current Visit: Yes Status: Acute Code(s): I16.0 - HYPERTENSIVE URGENCY (5) Hyponatremia Current Visit: Yes Status: Acute Code(s): E87.1 - HYPO-OSMOLALITY AND HYPONATREMIA (6) Hyperglycemia Current Visit: Yes Status: Acute Code(s): R73.9 - HYPERGLYCEMIA, UNSPECIFIED (7) Bladder wall thickening Current Visit: Yes Status: Acute Code(s): N32.89 - OTHER SPECIFIED DISORDERS OF BLADDER (8) Prerenal azotemia Current Visit: Yes Status: Acute Code(s): R79.89 - OTHER SPECIFIED ABNORMAL FINDINGS OF BLOOD CHEMISTRY (9) Cholelithiasis Current Visit: Yes Status: Acute (10) BPH (benign prostatic hyperplasia) Current Visit: Yes Status: Acute Code(s): N40.0 - BENIGN PROSTATIC HYPERPLASIA WITHOUT LOWER URINRY TRACT SYMP (11) DMII (diabetes mellitus, type 2) Current Visit: Yes Status: Acute (12) HTN (hypertension) Current Visit: Yes Status: Acute Code(s): I10 - ESSENTIAL (PRIMARY) HYPERTENSION
[2025-03-21 06:37] LABS: BASOPHIL % 0.5 % (0.2-1.2); Basophil (Absolute #) 0.04 x10^3/uL (0.01-0.08); Eosinophil (Absolute #) 0.23 x10^3/uL (0.04-0.54); Hematocrit 35.9 % (40.1-51.0); Hemoglobin 12.0 g/dL (13.7-17.5); IMMATURE GRAN # 0.04 x10^3u/L (0.001-0.031); IMMATURE GRAN % 0.5 % (0.001-0.429); Lymphocyte (Absolute #) 1.65 x10^3/uL (1.32-3.57); Mean Corpuscular Hemoglobin 28.8 pg (25.7-32.2); Mean Corpuscular Hgb Concent. 33.4 g/dL (32.3-36.5); Monocyte (Absolute #) 0.84 x10^3/uL (0.30-0.82); NUCLEATED RBC # 0.00 x10^3u/L (0.00-0.012); NUCLEATED RBC % 0.0 % (0.00-0.2); Platelet Count 127 x10^3/uL (163-337); Red Blood Count 4.17 x10^6/uL (4.63-6.08); White Blood Count 7.3 x10^3/uL (4.23-9.07)
[2025-03-21 07:10] LABS: Calcium 7.9 mg/dL (8.4-10.2); Carbon Dioxide 19.0 mmol/L (22-30); Creatinine 1 0.76 mg/dL (0.66-1.25); EST GLOMERULAR FILTRATION RATE 103.5 ML/MIN; Glucose 191.0 mg/dL (74-106); Potassium 3.6 mmol/L (3.5-5.1); SGOT/AST 21.0 U/L (17-59); SGPT/ALT 17.0 U/L (0-50); Total Protein 5.7 g/dL (6.3-8.2)
[2025-03-21 09:03] LABS: Slide Review 1 YES
--- NOTE | 2025-03-21 09:43 | PCM.DS ---
Discharge Summary Date of Admission: 03/19/25 05:48 Date of Discharge: 03/21/25 Admitting Physician: KENDY SMART MD Consults: Consults on Case 03/19/25 05:50 Consult Surgery ROUTINE Primary Care Provider: NO FAMILY DOCTOR Allergies Allergies clarithromycin [From Biaxin] Allergy (Intermediate, Verified 03/19/25 00:59) Hospital Summary - Hospital Course Hospital Course: Mr. Darby, a 59-year-old male with a medical history of benign prostatic hypertrophy (BPH), hypertension, type 2 diabetes mellitus, and right inguinal hernia, was admitted with three days of worsening lower abdominal and testicular pain radiating to the low back. He denied fever, chills, or urinary symptoms but admitted to poor adherence to his blood pressure and diabetes medications. On presentation, he was markedly hypertensive at 207/130 mm Hg, afebrile, and uncomfortable. Abdominal examination revealed lower tenderness with a reducible right inguinal hernia, and scrotal exam showed bilateral tenderness and erythema without torsion. Labs were notable for leukocytosis of 9.6 K/L, hyponatremia of 130 mmol/L (corrected 133 mmol/L), hyperglycemia of 362 mg/dL, low bicarbonate of 20 mmol/L, and BUN 28 mg/dL with normal creatinineconsistent with dehydration and metabolic stress but no JEANNETTE. CTA of the abdomen and pelvis demonstrated uncomplicated cholelithiasis, small right renal calculi, and a distended urinary bladder with irregular wall thickening (78 mm) suggesting cystitis or chronic outlet obstruction secondary to BPH. A right inguinal hernia containing bowel loops was seen without strangulation or obstruction. Ultrasound of the testicles showed bilateral hyperemic epididymides with mild orchitis and small reactive hydroceles, confirming epididymo-orchitis without torsion. The patient was started on IV fluids, ceftriaxone, and metronidazole for broad genitourinary and intra-abdominal coverage. His blood pressure improved following IV hydralazine (10 mg) with reduction to 156/81 mm Hg. Sliding-scale insulin was initiated for hyperglycemia management. Surgical consultation was obtained; the patient underwent right inguinal hernia repair on 03/19/25 without complication. Postoperatively, he reported complete resolution of scrotal pain, and surgical incision remained clean, dry, and intact. Diabetes education was provided after discovery of an A1c of 11.9%, and he agreed to start a basalbolus insulin regimen. Repeat labs prior to discharge on 03/21/25 were within normal limits. The surgical team cleared him for discharge. Epididymo-orchitis -He will complete oral levofloxacin and metronidazole for 10 days, and continue antihypertensive and diabetes therapy with outpatient follow-up with urology and ID. Patient also has appointments arranged with endocrinology, Urology, PCP, surgery, and ID. Discharge Note New Diagnosis: right inguinal hernia/bilateral epididymo-orchitis New Medications: Levaquin/Flagy/ Lantus/Humalog/Amlodipine glucometer/ glucagon/Flomax Follow Up: PCP, endocrinology/urology/ surgery/ID I spent 35 minutes [id number] with the patient on the day of discharge performing discharge exam, discussing hospital stay and discharge instructions with patient and caregivers, preparation of discharge records, prescriptions & referral forms and addressing any questions/concerns the patient had as documented above. - Vitals & Intake/Output Vital Signs: Vital Signs Temperature 97.5 F 03/21/25 07:12 Pulse Rate 76 03/21/25 07:12 Respiratory Rate 18 03/21/25 07:12 Blood Pressure 181/97 03/21/25 07:12 O2 Sat by Pulse Oximetry 97 03/21/25 07:12 Intake & Output: Intake & Output 03/18/25 03/19/25 03/20/25 03/21/25 11:59 11:59 11:59 11:59 Intake Total 3795 4730 Balance 3794 4736 Weight 78.7 kg 78.4 kg - Lab Result Diagrams: 03/21/25 05:24 03/21/25 05:24 Lab Results-Last 24 Hrs: Lab Results-Last 24 Hours 03/20/25 03/20/25 03/20/25 Range/Units 11:34 16:13 21:10 WBC (4.23-9.07) x10^3/uL RBC (4.63-6.08) x10^6/uL Hgb (13.7-17.5) g/dL Hct (40.1-51.0) % MCV (79.0-92.2) fL MCH (25.7-32.2) pg MCHC (32.3-36.5) g/dL RDW (11.6-14.4) % Plt Count (163-337) x10^3/uL MPV (9.4-12.4) fL Gran % (34.0-67.9) % Immature Gran % (Auto) (0.001-0.429) % Nucleat RBC Rel Count (0.00-0.2) % Eos # (Auto) (0.04-0.54) x10^3/uL Immature Gran # (Auto) (0.001-0.031) x10^3u/L Absolute Lymphs (auto) (1.32-3.57) x10^3/uL Absolute Monos (auto) (0.30-0.82) x10^3/uL Absolute Nucleated RBC (0.00-0.012) x10^3u/L Lymphocytes % (21.8-53.1) % Monocytes % (5.3-12.2) % Eosinophils % (0.8-7.0) % Basophils % (0.2-1.2) % Absolute Granulocytes (1.78-5.38) x10^3/uL Basophils # (0.01-0.08) x10^3/uL Sodium (135-145) mmol/L Potassium (3.5-5.1) mmol/L Chloride (98-107) mmol/L Carbon Dioxide (22-30) mmol/L Anion Gap (5-15) MEQ/L BUN (9-20) mg/dL Creatinine (0.66-1.25) mg/dL Estimated GFR ML/MIN Glucose (74-106) mg/dL POC Glucometer 311 H 306 H 259 H (74 to 106) mg/dL Calcium (8.4-10.2) mg/dL Total Bilirubin (0.2-1.3) mg/dL AST (17-59) U/L ALT (0-50) U/L Alkaline Phosphatase (38-126) U/L Serum Total Protein (6.3-8.2) g/dL Albumin (3.5-5.0) g/dL Slides for Path Review 03/21/25 03/21/25 03/21/25 Range/Units 05:24 05:24 07:37 WBC 7.3 (4.23-9.07) x10^3/uL RBC 4.17 L (4.63-6.08) x10^6/uL Hgb 12.0 L (13.7-17.5) g/dL Hct 35.9 L (40.1-51.0) % MCV 86.1 (79.0-92.2) fL MCH 28.8 (25.7-32.2) pg MCHC 33.4 (32.3-36.5) g/dL RDW 12.7 (11.6-14.4) % Plt Count 127 L (163-337) x10^3/uL MPV 10.8 (9.4-12.4) fL Gran % 61.7 (34.0-67.9) % Immature Gran % (Auto) 0.5 H (0.001-0.429) % Nucleat RBC Rel Count 0.0 (0.00-0.2) % Eos # (Auto) 0.23 (0.04-0.54) x10^3/uL Immature Gran # (Auto) 0.04 H (0.001-0.031) x10^3u/L Absolute Lymphs (auto) 1.65 (1.32-3.57) x10^3/uL Absolute Monos (auto) 0.84 H (0.30-0.82) x10^3/uL Absolute Nucleated RBC 0.00 (0.00-0.012) x10^3u/L Lymphocytes % 22.6 (21.8-53.1) % Monocytes % 11.5 (5.3-12.2) % Eosinophils % 3.2 (0.8-7.0) % Basophils % 0.5 (0.2-1.2) % Absolute Granulocytes 4.50 (1.78-5.38) x10^3/uL Basophils # 0.04 (0.01-0.08) x10^3/uL Sodium 131 L (135-145) mmol/L Potassium 3.6 (3.5-5.1) mmol/L Chloride 106 (98-107) mmol/L Carbon Dioxide 19 L (22-30) mmol/L Anion Gap 9.6 (5-15) MEQ/L BUN 19 (9-20) mg/dL Creatinine 0.76 (0.66-1.25) mg/dL Estimated GFR 103.5 ML/MIN Glucose 191 H (74-106) mg/dL POC Glucometer 233 H (74 to 106) mg/dL Calcium 7.9 L (8.4-10.2) mg/dL Total Bilirubin 0.70 (0.2-1.3) mg/dL AST 21 (17-59) U/L ALT 17 (0-50) U/L Alkaline Phosphatase 59 (38-126) U/L Serum Total Protein 5.7 L (6.3-8.2) g/dL Albumin 3.0 L (3.5-5.0) g/dL Slides for Path Review YES Micro Results-Entire Visit: Accuchecks Date 03/21/25 Date 03/20/25 Date 03/20/25 Time 07:59 Time 16:39 Time 11:43 Discharge Exam General Appearance: no apparent distress Neurologic Exam: alert, oriented x 3, cooperative Eye Exam: PERRL Ears, Nose, Throat Exam: normal ENT inspection Neck Exam: normal inspection Respiratory Exam: normal breath sounds, lungs clear Cardiovascular Exam: regular rate/rhythm, normal heart sounds Gastrointestinal/Abdomen Exam: soft, normal bowel sounds Male Genitalia Exam: testicular tenderness, other (surgical incision covered in surgical dressing suprapubic) Rectal Exam: deferred Back Exam: normal inspection Extremity Exam: normal inspection Skin Exam: normal color Final Diagnosis/Problem List - Final Discharge Diagnosis/Problem (1) Right inguinal hernia Current Visit: Yes Status: Acute Assessment & Plan: CT confirmed incarcerated but non-obstructed hernia containing bowel loops, no strangulation. Postoperative recovery uncomplicated. Continue activity restrictions per surgical instructions; no lifting >10 lbs for six weeks. Maintain wound hygiene. Outpatient surgical follow-up within two weeks. Code(s): K40.90 - UNIL INGUINAL HERNIA, W/O OBST OR GANGR, NOT SPCF RECUR (2) Bilateral epididymitis Current Visit: Yes Status: Acute Assessment & Plan: Ultrasound showed bilateral hyperemia and enlarged epididymides with small hydroceles. UA and STI testing negative, consistent with enteric etiology from bladder outlet obstruction. Discharge on oral levofloxacin 500 mg daily and metronidazole 500 mg twice daily for 10 days. Scrotal elevation, supportive underwear, and rest. Urology follow- up in 12 weeks. Code(s): N45.1 - EPIDIDYMITIS (3) Bilateral orchitis Current Visit: Yes Status: Acute Assessment & Plan: see above Code(s): N45.2 - ORCHITIS (4) Hypertensive urgency Current Visit: Yes Status: Acute Assessment & Plan: Initial BP 207/130 mm Hg improved to 156/81 mm Hg after IV hydralazine; no end- organ damage. Amlodipine 5 mg daily. Maintain BP log and bring to PCP visit within one week. Reinforce adherence and lifestyle modifications (low-sodium diet, regular activity). Code(s): I16.0 - HYPERTENSIVE URGENCY (5) Hyponatremia Current Visit: Yes Status: Acute Assessment & Plan: Continue hydration and routine metabolic monitoring. Code(s): E87.1 - HYPO-OSMOLALITY AND HYPONATREMIA (6) Hyperglycemia Current Visit: Yes Status: Acute Assessment & Plan: see diabetes Code(s): R73.9 - HYPERGLYCEMIA, UNSPECIFIED (7) Bladder wall thickening Current Visit: Yes Status: Acute Assessment & Plan: CTA showed bladder wall thickening (78 mm) with chronic outlet obstruction. No residuals on bladder scan. Continue tamsulosin 0.4 mg daily. Urology follow-up for prostate evaluation and consideration of further therapy. Code(s): N32.89 - OTHER SPECIFIED DISORDERS OF BLADDER (8) Prerenal azotemia Current Visit: Yes Status: Acute Assessment & Plan: BUN 28 mg/dL with normal creatinine, improved with IV fluids. Maintain oral hydration and avoid nephrotoxic medications. Recheck BMP within one week. Code(s): R79.89 - OTHER SPECIFIED ABNORMAL FINDINGS OF BLOOD CHEMISTRY (9) Cholelithiasis Current Visit: Yes Status: Acute Assessment & Plan: CT abdomen/pelvis revealed uncomplicated gallstones. No inpatient intervention. Recommend low-fat diet and outpatient surgical evaluation if biliary symptoms recur. (10) BPH (benign prostatic hyperplasia) Current Visit: Yes Status: Acute Assessment & Plan: see bladder thickening Code(s): N40.0 - BENIGN PROSTATIC HYPERPLASIA WITHOUT LOWER URINRY TRACT SYMP (11) DMII (diabetes mellitus, type 2) Current Visit: Yes Status: Acute Assessment & Plan: Admission glucose 362 mg/dL; A1c 11.9%. Start basalbolus insulin regimen (glargine + lispro with meals). Lantus 10 units: SSI: Moderate dosing Provide glucometer, lancets, strips, and education on insulin use. Nutrition and diabetic teaching completed prior to discharge. Follow-up with PCP or endocrinology in one week. Provide education to family/patient on glucagon (12) HTN (hypertension) Current Visit: Yes Status: Acute Assessment & Plan: see hypertensive urgency Discharge Medications: Levofloxacin 500 mg PO daily 10 days Metronidazole 500 mg PO BID 10 days Amlodipine 5 mg PO daily Tamsulosin 0.4 mg PO daily Insulin glargine 10 units daily and lispro per sliding scale regimen Acetaminophen PRN for pain Follow-Up: PCP within one week for BP and glucose monitoring Urology/ID in 12 weeks for epididymo-orchitis and BPH follow-up General surgery in 2 weeks for postoperative check Condition at Discharge: Stable, pain controlled, ambulating independently, voiding normally, vitals within normal range. Code(s): I10 - ESSENTIAL (PRIMARY) HYPERTENSION - Discharge Discharge Date: 03/21/25 Disposition: Home, Self-Care Condition: Stable Prescriptions: New Blood-Glucose Meter [Accu-Chek Guide Me Glucose Mtr] 1 each UD #1 misc Blood Sugar Diagnostic [Accu-Chek Guide Test Strip] 1 each ACHS #120 strip Lancets [Accu-Chek Softclix] 1 each ACHS #120 misc Metronidazole 500 mg [Flagyl 500 MG] 500 mg PO BID 7 Days #14 tablet Tamsulosin HCl [Flomax] 0.4 mg PO DAILY 30 Days #30 cap Insulin Glargine [Lantus Insulin] 10 unit SQ AMINSULIN unit Levofloxacin [Levofloxacin 500 MG Tablet] 500 mg PO DAILY 7 Days #7 tablet Amlodipine Besylate 5 mg [Norvasc 5 mg] 5 mg PO QAM 30 Days #30 tablet Insulin Lispro [Insulin Lispro [facility]] See Rx Instructions .ROUTE .COMPLEX 30 Days #1 unit glucagon HCL [Glucagon Emergency Kit] See Rx Instructions .ROUTE .COMPLEX 30 Days #1 kit Additional Instructions: CHECK YOUR BLOOD SUGAR THREE TIMES A DAY AND BEFORE BEDTIME- KEEP LOG OF RESULTS AND TAKE TO YOUR FOLLOW UP APTS Your target blood sugar is 802463 mg/dL while you recover. If your blood sugar drops below 70 mg/dL, treat immediately with 4 oz of juice or glucose tablets, recheck in 15 minutes, and repeat if still low. Notify your provider if you have repeated low readings. Eat consistent, balanced meals following the ADA dietfocus on lean protein, non-starchy vegetables, and limited refined carbohydrates. Stay hydrated and avoid skipping meals when taking insulin. Youve been provided with a glucometer, test strips, lancets, and insulin pen needlesuse these as instructed during your education session. Post-Surgical Care (Right Inguinal Hernia Repair): Your incision is healing well. Keep the site clean, dry, and uncovered unless otherwise instructed. Mild soreness or bruising is normal. Avoid lifting over 10 pounds or any straining for six weeks to prevent hernia recurrence. You may shower 24 hours after discharge, but do not soak in a tub until cleared by your surgeon. Watch for signs of infectionincreased redness, drainage, swelling, or feverand call your provider if these occur. You may take acetaminophen for mild pain; avoid NSAIDs unless cleared by your doctor. Resume light walking daily to improve circulation and prevent constipation. [employer] [facility] AT [address] [place] [address] 03/26/25 AT 1030 Follow-Up: Primary Care: within 1 week for blood pressure and diabetes management. Surgery: in 2 weeks for wound check. Urology: in 12 weeks for evaluation of epididymo-orchitis and BPH. Seek care immediately for severe abdominal pain, vomiting, fever, or blood sugar >400 mg/dL not responding to insulin. We will call you Sunday with your appointments with Urology and Infectious disease. Follow up with: DELFIN POP [ACTIVE STAFF, FAMILY PRACTICE] - 03/27/25 10:40 am CECE MCKEON [ACTIVE STAFF, GENERAL SURGERY] - 04/09/25 10:25 am Referral Note: AT [facility]
[2025-03-21] MEDS: NORVASC 5 MG PO SCH (09:56)
--- NOTE | 2025-03-21 11:13 | PCM.DCORD ---
- Discharge Discharge Date: 03/21/25 Disposition: Home, Self-Care Condition: Stable Prescriptions: New Blood-Glucose Meter [Accu-Chek Guide Me Glucose Mtr] 1 each UD #1 misc Blood Sugar Diagnostic [Accu-Chek Guide Test Strip] 1 each ACHS #120 strip Lancets [Accu-Chek Softclix] 1 each ACHS #120 misc Metronidazole 500 mg [Flagyl 500 MG] 500 mg PO BID 7 Days #14 tablet Tamsulosin HCl [Flomax] 0.4 mg PO DAILY 30 Days #30 cap Insulin Glargine [Lantus Insulin] 10 unit SQ AMINSULIN unit Levofloxacin [Levofloxacin 500 MG Tablet] 500 mg PO DAILY 7 Days #7 tablet Insulin Lispro [Insulin Lispro Lester Kwikpen] See Rx Instructions .ROUTE .COMPLEX 30 Days #1 unit glucagon HCL [Glucagon Emergency Kit] See Rx Instructions .ROUTE .COMPLEX 30 Days #1 kit Amlodipine Besylate [Norvasc] 10 mg PO DAILY 30 Days #30 tablet Additional Instructions: CHECK YOUR BLOOD SUGAR THREE TIMES A DAY AND BEFORE BEDTIME- KEEP LOG OF RESULTS AND TAKE TO YOUR FOLLOW UP APTS Your target blood sugar is 054760 mg/dL while you recover. If your blood sugar drops below 70 mg/dL, treat immediately with 4 oz of juice or glucose tablets, recheck in 15 minutes, and repeat if still low. Notify your provider if you have repeated low readings. Eat consistent, balanced meals following the ADA dietfocus on lean protein, non-starchy vegetables, and limited refined carbohydrates. Stay hydrated and avoid skipping meals when taking insulin. Youve been provided with a glucometer, test strips, lancets, and insulin pen needlesuse these as instructed during your education session. Post-Surgical Care (Right Inguinal Hernia Repair): Your incision is healing well. Keep the site clean, dry, and uncovered unless otherwise instructed. Mild soreness or bruising is normal. Avoid lifting over 10 pounds or any straining for six weeks to prevent hernia recurrence. You may shower 24 hours after discharge, but do not soak in a tub until cleared by your surgeon. Watch for signs of infectionincreased redness, drainage, swelling, or feverand call your provider if these occur. You may take acetaminophen for mild pain; avoid NSAIDs unless cleared by your doctor. Resume light walking daily to improve circulation and prevent constipation. [employer] [facility] AT [place] [id number] [place] [address] [place] [address] 03/26/25 AT 1030 Follow-Up: Primary Care: within 1 week for blood pressure and diabetes management. Surgery: in 2 weeks for wound check. Urology: in 12 weeks for evaluation of epididymo-orchitis and BPH. Seek care immediately for severe abdominal pain, vomiting, fever, or blood sugar >400 mg/dL not responding to insulin. We will call you Sunday with your appointments with Urology and Infectious disease. Follow up with: DELFIN POP [ACTIVE STAFF, FAMILY PRACTICE] - 03/27/25 10:40 am CECE MCKEON [ACTIVE STAFF, GENERAL SURGERY] - 04/09/25 10:25 am Referral Note: AT [facility]
[2025-03-21] MEDS: NORVASC 5 MG PO ONE (11:17)
[2025-03-21 12:07] VITALS: BP 167/89; PULSE 65; TEMP 97.8; O2SAT 98
== END 2025-03-21 13:51 | disposition home or self-care (01) ==
LOC: ED 00:51 → MED SURG 05:48
PROVIDERS: ADMIT Hospitalist; ATTEND Hospitalist
DX: K40.90 Unilateral inguinal hernia, without obstruction or gangrene, not specified as recurrent (principal); N45.1 Epididymitis; N45.2 Orchitis; I16.0 Hypertensive urgency; E87.1 Hypo-osmolality and hyponatremia; N32.89 Other specified disorders of bladder; R79.89 Other specified abnormal findings of blood chemistry; K80.20 Calculus of gallbladder without cholecystitis without obstruction; N40.0 Benign prostatic hyperplasia without lower urinary tract symptoms; E11.65 Type 2 diabetes mellitus with hyperglycemia; I10 Essential (primary) hypertension

== ENCOUNTER 2025-04-10 06:18 | Emergency (ER) | payer OTHER ==
[2025-04-10 06:40] VITALS: TEMP 97.6
[2025-04-10] MEDS ORDERED: MORPHINE SULFATE 4 MG INJ ONE ×2 (06:52→14:19)
[2025-04-10] MEDS ORDERED: Zofran 4 MG/2 ML VIAL ONE (06:52)
[2025-04-10] MEDS: Zofran 4 MG/2 ML VIAL IV ONE (06:53)
[2025-04-10] MEDS: MORPHINE SULFATE 4 MG INJ IV ONE ×2 (06:53→14:22)
[2025-04-10 06:58] LABS: BASOPHIL % 0.7 % (0.2-1.2); Basophil (Absolute #) 0.05 x10^3/uL (0.01-0.08); Eosinophil (Absolute #) 0.23 x10^3/uL (0.04-0.54); Hematocrit 38.0 % (40.1-51.0); Hemoglobin 13.0 g/dL (13.7-17.5); IMMATURE GRAN # 0.04 x10^3u/L (0.001-0.031); IMMATURE GRAN % 0.6 % (0.001-0.429); Lymphocyte (Absolute #) 1.53 x10^3/uL (1.32-3.57); Mean Corpuscular Hemoglobin 29.2 pg (25.7-32.2); Mean Corpuscular Hgb Concent. 34.2 g/dL (32.3-36.5); Monocyte (Absolute #) 0.69 x10^3/uL (0.30-0.82); NUCLEATED RBC # 0.00 x10^3u/L (0.00-0.012); NUCLEATED RBC % 0.0 % (0.00-0.2); Platelet Count 177 x10^3/uL (163-337); Red Blood Count 4.45 x10^6/uL (4.63-6.08); White Blood Count 7.2 x10^3/uL (4.23-9.07)
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
[2025-04-10 07:12] LABS: CK-Creatinine Phosphokinase 58.0 U/L (55-170); Calcium 8.8 mg/dL (8.4-10.2); Carbon Dioxide 19.0 mmol/L (22-30); Creatinine 1 0.71 mg/dL (0.66-1.25); EST GLOMERULAR FILTRATION RATE 105.0 ML/MIN; Glucose 271.0 mg/dL (74-106); Potassium 4.1 mmol/L (3.5-5.1); SGOT/AST 30.0 U/L (17-59); SGPT/ALT 28.0 U/L (0-50); Total Protein 7.3 g/dL (6.3-8.2)
--- NOTE | 2025-04-10 08:42 | XRAY ---
Indication: Swelling. Two-dimensional sonogram and color Doppler imaging major venous vessels left leg performed. Comparison: None No thrombus seen in the examined deep venous vessels left leg including greater saphenous vein. Veins demonstrate normal compressibility. Venous waveforms are normal with and without augmentation. Impression: Left leg negative for DVT.
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
[2025-04-10 09:17] LABS: Glucose, Urine >=1000 mg/dL (Negative); Protein,Urine Dip 30 (Negative); RBC 0-2 /HPF (0-5); WBC 0-2 /HPF (0-5)
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
[2025-04-10] MEDS: OFIRMEV 100 ML IV ONE (09:51)
[2025-04-10] MEDS ORDERED: OFIRMEV 100 ML IV ONE (09:51)
[2025-04-10] MEDS ORDERED: TORAdol 30 mg Injection ONE (12:32)
[2025-04-10] MEDS: TORAdol 30 mg Injection IV ONE (12:34)
[2025-04-10] MEDS ORDERED: Norflex 60 MG/2 ML ONE (14:19)
[2025-04-10] MEDS: Norflex 60 MG/2 ML IV ONE (14:21)
[2025-04-10 15:02] VITALS: BP 167/91; PULSE 71; RESP 20; O2SAT 99
== END 2025-04-10 15:19 | disposition home or self-care (01) ==
LOC: ED 06:18
DX: M25.552 Pain in left hip (principal); V28.09XA Other motorcycle driver injured in noncollision transport accident in nontraffic accident, initial encounter; R60.0 Localized edema; I10 Essential (primary) hypertension; E11.9 Type 2 diabetes mellitus without complications; Z79.899 Other long term (current) drug therapy